=== PATIENT | female | born 1955 | race Caucasian/White ===

== ENCOUNTER → 2020-03-11 | Outpatient (CLI) | payer OTHER ==
--- NOTE | 2020-03-11 08:40 | US ---
EXAMINATION TYPE: US abdomen complete DATE OF EXAM: 03/11/2020 COMPARISON: NONE CLINICAL HISTORY: R10.84 ABD PAIN. Pain EXAM MEASUREMENTS: Liver Length: 16.4 cm Gallbladder Wall: Surgically absent cm CBD: .5 cm Spleen: 10.3 cm Right Kidney: 10.4 x 3.8 x 4.9 cm Left Kidney: 10.9 x 4.3 x 3.7 cm Pancreas: wnl as visualized with partial obscuration of the pancreatic head and tail due to overlyin g bowel gas Liver: wnl Gallbladder: Surgically absent Evidence for sonographic Farnsworth's sign: No CBD: wnl Spleen: wnl Right Kidney: wnl Left Kidney: wnl Upper IVC: wnl Abd Aorta: wnl The liver is homogenous. The intrahepatic portion of the IVC and proximal abdominal aorta are within normal limits Common bile duct is unremarkable. The visualized portions of the pancreas are homogen ous. The spleen is unremarkable. Kidneys are symmetric and free of hydronephrosis. No renal lesion s are seen. IMPRESSION: Unremarkable abdominal ultrasound other than surgical absence of the gallbladder.
== END | disposition home or self-care (01) ==
LOC: RADUSWWP 07:41
PROVIDERS: ATTEND Family Medicine
DX: Z90.49 Acquired absence of other specified parts of digestive tract (principal)
CPT/HCPCS: 76700

== ENCOUNTER → 2020-11-25 | Outpatient (CLI) | payer OTHER ==
[2020-11-25 15:49] VITALS: BP 118/77; PULSE 78; RESP 18; TEMP 97.7
--- NOTE | 2020-11-25 17:08 | P.GSHP ---
History of Present Illness H&P Date: 11/25/20 Chief Complaint: DCIS left breast Joy is a 65 year old white female seen in consultation for DR. Carrillo who had a routine screening mammogram on 10-01-20 and was noted to have an area of microcalcificaton in the left breast. Diagnostic mammogram was then performed and 120 [id number]. This revealed a suspicious group of calcifications in the upper outer quadrant region. She has not felt anything Her breast. She is not complaining of any nipple discharge or skin changes. A stereotactic core biopsy was performed on 2420. This revealed DCIS high-grade with comedonecrosis. Microinvasion could not be excluded. The radiographs were reviewed with Dr. Akhtar it is felt that the area of concern is approximately 1 cm in size. She does not have any history of recent trauma or infection in her breast. She has had fibrocystic changes and felt some nodularity in that region in the past but that is not changed recently. The patient was tested for the BRACA gene and was negative. Caffeine: 1-2 cups of coffee/day nicotine: none juanita-bromine: occasional hormones: none Family History: mother: breast cancer (three times, recurred) at 33 maternal grandmother: breast cancer, of this ? age sister: breast cancer, mets to brain form this niece: breast cancer maternal uncle: stomach cancer, of this Hormonal History: menarche: 17 , breast fed: no, age at first : 20 menopause: endometriosis, had stopped periods with hormones BCP: less than 2 years Medical History: back pain asthma GERD hypothyroid Surgical HIstory: tubal gallbladder appy Social History: nicotine: stopped 20 years ago alcohol: occasional drugs: back pain, Marijuana occasionally - Constitutional Constitutional: Reports chills, Denies fever - EENT Eyes: bilateral blurred vision, denies pain Ears: deny: decreased hearing, tinnitus Ears, nose, mouth and throat: Denies headache, Denies sore throat - Breasts Breasts: bilateral: as per HPI - Cardiovascular Cardiovascular: Denies chest pain, Denies shortness of breath - Respiratory Respiratory: Denies cough, Denies 7 - Gastrointestinal Gastrointestinal: Denies abdominal pain, Denies diarrhea, Denies nausea, Denies vomiting - Genitourinary (Female) Genitourinary: Denies dysuria, Denies hematuria - Menstruation Menstruation: Reports postmenopausal - Musculoskeletal Comment: back pain - Integumentary Integumentary: Denies pruritus, Denies rash - Neurological Neurological: Denies numbness, Denies weakness - Psychiatric Psychiatric: Denies anxiety, Denies depression - Endocrine Endocrine: Denies fatigue, Denies weight change - Hematologic/Lymphatic Comment: none - Allergic/Immunologic Allergic/Immunologic: Reports as per HPI, Reports seasonal allergies Past Medical History Past Medical History: Asthma, Eye Disorder, Fibromyalgia, GERD/Reflux, Musculoskeletal Disorder, Osteoarthritis (OA), Rheumatoid Arthritis (RA), Thyroid Disorder Additional Past Medical History / Comment(s): MUSCLE IMBALANCE LT EYE. Hiatal Hernia. Endometriosis; LMP 2014. Anemia. Lower back pain, has pain in LUQ ABD/Side that radiates to back. Environmental allergies- never testED. History of Any Multi-Drug Resistant Organisms: None Reported Past Surgical History: Appendectomy, Cholecystectomy, Tubal Ligation Additional Past Surgical History / Comment(s): CHOLECYSTECTOMY, 08/22/15. EGD 08/19/15, 10/24/15. Past Anesthesia/Blood Transfusion Reactions: No Reported Reaction, Family History of Problems w/ Anesthesia Additional Past Anesthesia/Blood Transfusion Reaction / Comment(s): Mom has ponv & sob with anesthesia Past Psychological History: Anxiety Smoking Status: Former smoker Past Alcohol Use History: None Reported Additional Past Alcohol Use History / Comment(s): started smoking @ age 18 (1973)-quit 2006- was 5 cigarettes a day Past Drug Use History: Marijuana Additional Drug Use History / Comment(s): medical marijuana - states uses when pain from fibromyalgia gets too bad. - Past Family History Mother Family Medical History: Cancer Sister(s) Family Medical History: Cancer Father Family Medical History: No Reported History Medications and Allergies Home Medications Medication Instructions Recorded Confirmed Type Levothyroxine Sodium [Synthroid] 112 mcg PO QAM 08/15/15 11/25/20 History Albuterol Inhaler (Mhu) [Ventolin 1 - 2 puff INHALATION RT-Q6H PRN 08/21/15 11/25/20 History Inhaler] Cholecalciferol [Vitamin D3] 1,000 unit PO DAILY 08/21/15 11/25/20 History Sertraline [Zoloft] 25 mg PO DAILY 10/21/15 11/25/20 History Allergies Allergy/AdvReac Type Severity Reaction Status Date / Time No Known Allergies Allergy Verified 11/25/20 15:49 Surgical - Exam Vital Signs Temp Pulse Resp BP 97.7 F 78 18 118/77 11/25/20 15:39 11/25/20 15:39 11/25/20 15:39 11/25/20 15:39 BMI 23.8 - General well developed, well nourished, no distress - Eyes normal ocular movement - ENT no hearing loss - Neck no masses, trachea midline - Respiratory normal expansion, normal respiratory effort, clear to auscultation - Cardiovascular Rhythm: regular Heart Sounds: normal: S1, S2 - Abdomen Abdomen: soft, bowel sounds - Integumentary normal turgor - Neurologic no disoriented, no combative - Musculoskeletal normal gait, normal posture - Psychiatric oriented to time, oriented to person, oriented to place, speech is normal, memory intact Breast Cancer: BRA: 38C inspection: Bilateral grade 2 ptosis Palpation: Right breast: Multiple positional exam fibrocystic changes no dominant masses or nodules of concern Right axilla: No adenopathy of concern Left breast: Multiple positional exam increased fullness upper-outer quadrant area which is consistent with the same region seen on mammogram for which biopsy was done, well-healed scar over stereotactic core biopsy was done no evidence of any infection Left axilla: No adenopathy of concern Results Mammogram reviewed with Dr. Akhtar from radiology Assessment and Plan Assessment: Impression: 1. DCIS left breast 2. Mild fullness left breast upper outer quadrant 2. Abnormal left breast mammogram 4. Family history of breast cancer 5. Back pain 6. Hypothyroidism Plan: 1. genetic testing 2. appointment with plastic surgery 3. present at tumor board CC: / Shellie encounter 45 minutes, time spent in physical exam, reviewing medical records, counselling.
== END | disposition home or self-care (01) ==
LOC: WWCWWP 15:19
PROVIDERS: ATTEND Surgery
DX: D05.12 Intraductal carcinoma in situ of left breast (principal); R92.8 Other abnormal and inconclusive findings on diagnostic imaging of breast; Z80.3 Family history of malignant neoplasm of breast; M54.9 Dorsalgia, unspecified; E03.9 Hypothyroidism, unspecified; F41.9 Anxiety disorder, unspecified; J45.909 Unspecified asthma, uncomplicated; K21.9 Gastro-esophageal reflux disease without esophagitis; M06.9 Rheumatoid arthritis, unspecified; M79.7 Fibromyalgia; Z87.891 Personal history of nicotine dependence

== ENCOUNTER → 2021-01-02 | Outpatient (CLI) | payer OTHER ==
[2021-01-02 10:38] VITALS: BP 109/76; PULSE 67; RESP 18; TEMP 98.1
--- NOTE | 2021-01-02 11:45 | P.PN ---
Subjective Progress Note Date: 01/02/21 Principal diagnosis: left breast DCIS/ possible microinvasion Joy is a 65 year old white female seen in consultation for DR. Carrillo who had a routine screening mammogram on 10-01-20 and was noted to have an area of microcalcificaton in the left breast. Diagnostic mammogram was then performed and [id number]. This revealed a suspicious group of calcifications in the upper outer quadrant region. She has not felt anything Her breast. She is not complaining of any nipple discharge or skin changes. A stereotactic core biopsy was performed on 2420. This revealed DCIS high-grade with comedonecrosis. Microinvasion could not be excluded. The radiographs were reviewed with Dr. Akhtar it is felt that the area of concern is approximately 1 cm in size. She does not have any history of recent trauma or infection in her breast. She has had fibrocystic changes and felt some nodularity in that region in the past but that is not changed recently. The patient was tested for the BRACA gene and was negative. Caffeine: 1-2 cups of coffee/day nicotine: none juanita-bromine: occasional hormones: none Family History: mother: breast cancer (three times, recurred) at 33 maternal grandmother: breast cancer, of this ? age sister: breast cancer, mets to brain form this niece: breast cancer maternal uncle: stomach cancer, of this Hormonal History: menarche: 17 , breast fed: no, age at first : 20 menopause: endometriosis, had stopped periods with hormones BCP: less than 2 years Medical History: back pain asthma GERD hypothyroid Surgical HIstory: tubal gallbladder appy Social History: nicotine: stopped 20 years ago alcohol: occasional drugs: back pain, Marijuana occasionally - Constitutional Constitutional: Reports chills, Denies fever - EENT Eyes: bilateral blurred vision, denies pain Ears: deny: decreased hearing, tinnitus Ears, nose, mouth and throat: Denies headache, Denies sore throat - Breasts Breasts: bilateral: as per HPI - Cardiovascular Cardiovascular: Denies chest pain, Denies shortness of breath - Respiratory Respiratory: Denies cough - Gastrointestinal Gastrointestinal: Denies abdominal pain, Denies diarrhea, Denies nausea, Denies vomiting - Genitourinary (Female) Genitourinary: Denies dysuria, Denies hematuria - Menstruation Menstruation: Reports postmenopausal - Musculoskeletal Comment: back pain - Integumentary Integumentary: Denies pruritus, Denies rash - Neurological Neurological: Denies numbness, Denies weakness - Psychiatric Psychiatric: Denies anxiety, Denies depression - Endocrine Endocrine: Denies fatigue, Denies weight change - Hematologic/Lymphatic Comment: none - Allergic/Immunologic Allergic/Immunologic: Reports as per HPI, Reports seasonal allergies Objective - Vital Signs Vital signs: Vital Signs Temp 98.1 F 01/02/21 10:35 Pulse 67 01/02/21 10:35 Resp 18 01/02/21 10:35 BP 109/76 01/02/21 10:35 Pulse Ox 97 01/02/21 10:35 Intake & Output 01/01/21 01/02/21 01/02/21 18:59 06:59 18:59 Weight 65.771 kg - Exam BMI 24.9 - Constitutional General appearance: Present: average body habitus - EENT Eyes: Present: EOMI ENT: Present: hearing grossly normal - Neck Neck: Present: normal ROM - Respiratory Respiratory: bilateral: CTA - Cardiovascular Rhythm: regular Heart sounds: normal: S1, S2 - Integumentary Integumentary: Present: normal turgor - Musculoskeletal Musculoskeletal: Present: gait normal - Psychiatric Psychiatric: Present: A&O x's 3, appropriate affect, intact judgment & insight - Additional findings Additional findings: breast exam: BRA: 38C inspection: bilateral grade 2 ptosis palpation: Breasts: Multiple positional exam fibrocystic changes, no dominant masses or nodules of concern Right axilla: No adenopathy of concern Left breast: Multiple positional exam fibrocystic changes, no dominant masses or nodules of concern Left axilla: No adenopathy of concern Assessment and Plan Assessment: Impression: 1. Stage I a left breast cancer/possible stage 0 breast cancer uncertain as to microinvasion 2. Fibrocystic breast changes 3. Strong family history of breast cancer 4. Genetic testing pending Plan: 1. Case presented at tumor board 2. Patient initially was considering bilateral mastectomy with reconstruction at this time she wishes lumpectomy to be performed. She understands risks and benefits of the procedure including bleeding, infection, reaction to the anesthetic and wishes to proceed. 3. We have discussed the fact that after lumpectomy radiation would be recommended she is uncertain as to whether she will except radiation and will consider this after final pathology is known 4. Needle localization lumpectomy left breast, possible mastopexy, possible onco- plastic tissue transfer, sentinel node injection, sentinel node biopsy, possible axillary node dissection Treatment options ranging from bilateral mastectomy plus or minus reconstruction to lumpectomy the mastopexy incision or other incision were discussed with the patient. At this time she wishes needle localization lumpectomy via mastopexy incision, she understands that her breasts will be asymmetric this can be addressed after complete treatment of the left breast. She wishes to proceed. Markings were placed on the patient's breasts to show where a mastopexy incision would be placed. She understands this and wishes to proceed. Cc: Dr. Worthington encounter 45 minutes
== END ==
LOC: WWCWWP 09:49
PROVIDERS: ATTEND Surgery
DX: C50.912 Malignant neoplasm of unspecified site of left female breast (principal); N60.12 Diffuse cystic mastopathy of left breast; N60.11 Diffuse cystic mastopathy of right breast; E03.9 Hypothyroidism, unspecified; J45.909 Unspecified asthma, uncomplicated; Z79.890 Hormone replacement therapy; Z87.891 Personal history of nicotine dependence; Z80.3 Family history of malignant neoplasm of breast

== ENCOUNTER 2021-01-06 09:54 | Day surgery (SDC) | payer OTHER ==
[2021-01-05 09:33] VITALS: BMI 23.8
[~2021-01-06 09:54] MED LIST: ALPRAZolam 0.5 MG TAB PO PRN; DEXAMETHASONE SOD PHOSPHATE 4 MG/ML 1 ML VIAL IV ONE; HEPARIN SODIUM,PORCINE 5,000 UNIT/ML 1 ML VIAL SQ PRN; LIDOCAINE 1% (10MG/ML) FOR IV START INTRADERMA PRN; MIDAZOLAM 2 MG/2 ML VIAL IV PRN; Pre Op ABX Message 1 EACH MISC MISCELLANE ONE
[2021-01-06] MEDS: LACTATED RINGERS 1,000 ML IV SCH ×2 (10:36→15:53)
--- NOTE | 2021-01-06 11:21 | P.NAPBC ---
NAPBC Queries - [facility] Was patient's case review presented at [facility] tumor board? If no, comment.: Yes Was patient's pathology reviewed at [facility]? If no, comment.: Yes Was breast conservation surgery offered? If no, comment.: Yes Was sentinel node biopsy offered? If no, comment.: Yes Was diagnosis confirmed by percutaneous core biopsy? If no, comment.: Yes Is patient mastectomy patient?: No Was a preop referral to reconstructive surgeon offered?: Yes (initially patient wanted a mastectomy) Clinical Stage: stage IA
[2021-01-06] MEDS ORDERED: LIDOCAINE 1% INJ 10MG/ML (20 ML MDV) SQ ONE (11:31)
[2021-01-06] MEDS: ONDANSETRON 4 MG/2 ML VIAL ONE ×2 (12:12→15:01)
[2021-01-06] MEDS ORDERED: ePHEDrine SULFATE/0.9% NACL/PF 50 MG/5 ML SYRINGE IV ONE (12:28)
[2021-01-06] MEDS ORDERED: MIDAZOLAM 2 MG/2 ML VIAL ONE (12:28)
[2021-01-06] MEDS ORDERED: WATER FOR INJECTION, STERILE 10 ML VIAL IV ONE (12:28)
[2021-01-06] MEDS ORDERED: fentaNYL (PF) 50 MCG/ML 2 ML AMP ONE (12:28)
[2021-01-06] MEDS ORDERED: SUCCINYLCHOLINE CHLORIDE 100 MG/5 ML SYR IV ONE (12:28)
[2021-01-06] MEDS ORDERED: PROPOFOL 10 MG/ML 20 ML VIAL IV ONE (12:28)
[2021-01-06] MEDS ORDERED: LIDOCAINE 1% INJ 10MG/ML (20 ML MDV) ONE (12:28)
--- NOTE | 2021-01-06 12:45 | NM ---
EXAMINATION TYPE: NM sentinel node injection DATE OF EXAM: 01/06/2021 COMPARISON: NONE HISTORY: 65 year-old female with biopsy-proven left breast DCIS. TECHNIQUE AND FINDINGS: The procedure of sentinel lymph node injection was explained to the patient. The benefits, alternatives, and risks were discussed. An informed consent was then obtained. Overlying skin is cleaned with sterile alcohol. Following this, 505 uCi Tc99m Tilmanocept was inject ed in the upper outer aspect of the left nipple intradermally. The patient tolerated the procedure well without any immediate complication. The patient was kept in the radiology department for short stay after the procedure and then taken to surgery for surgical p rocedure what is presumed intraoperative gamma probe will be used for sentinel lymph node detection. IMPRESSION: Successful left breast radiotracer injection for sentinel node localization as above.
--- NOTE | 2021-01-06 14:29 | P.OP ---
Date of Procedure: 01/06/21 Preoperative Diagnosis: Left breast DCIS/possible microinvasion Postoperative Diagnosis: Same Procedure(s) Performed: Localization excisional lumpectomy with margins, onco-plastic tissue transfer 60.5 cm, sentinel node resection Anesthesia: NATTY Surgeon: Tabitha Mckenna Estimated Blood Loss (ml): 3 IV fluids (ml): 300 Pathology: other (lymph node and breast tissue) Condition: stable Disposition: same day Indications for Procedure: left breast DCIS, possible microinvasion Operative Findings: dense breast tissue Description of Procedure: Joy is a 64-year-old white female who presented with a core biopsy which was positive for ductal carcinoma in situ, possible microinvasion, in the left breast upper outer quadrant. She opted for lumpectomy with sentinel node biopsy. Preoperatively we discussed possible mastopexy incision, however after needle localization in the preoperative after review of the needle localization she opted for a resection without mastopexy. She was brought to the operating room and following induction of anesthesia the left breast was prepped and draped in a sterile fashion as well as the axilla. The axilla had been interrogated preprocedure to assure that radioactive substance had traveled to the axilla and this had occurred. The axilla was approached first. Using the [place] counter the area of highest radioactivity was identified and incision was made and carried down into the deeper axillary tissues. A deep axillary node was identified which was radioactive. This was removed using careful blunt and sharp dissection. The Harmonic Scalpel was used to help obtain hemostasis. The lymph node was removed and the 10 second radioactive count was 2859. The background count of the axilla was 35 at 10 seconds. The area was well irrigated. The deep tissues were closed using 3-0 Vicryl suture. The skin was closed using a 4-0 Monocryl. Steri-Strips were applied. The area of the breast was then approached. A incision was made and carried down to the hook and shaft of the needle. Surrounding tissue was excised. The specimen was 5 cm x 4.5 cm. This was removed and painted for orientation. Radiograph of the specimen was obtained and revealed that the area of concern as well as microcalcifications had been removed. After we were assured that hemostasis was attained superior and inferior pillars were developed. The superior pillar was 4 x 4 centimeters. It was freed along the subcutaneous tissue as well as onto the chest wall. The inferior pillar was 5.5 x 4 cm and was freed again in the subcutaneous plane as well as on the plan above the pectoralis muscle. Titanium clips were placed. The posterior dissection had been carried to the pectoralis muscle. The deep tissues were closed using 3-0 Vicryl sutures. The pilars wre brought together to close the defect. The total tissue transfer was 60.5 cm. Following this the subcutaneous tissue was closed using 3-0 Vicryl suture. This was followed by closure of the subcuticular tissue with a 4-0 Monocryl followed by a nylon skin suture. The patient tolerated the procedure in stable condition. All instrument and sponge counts were correct at the end of the case.
--- NOTE | 2021-01-06 14:32 | P.DS ---
Providers Attending physician: Tabitha Mckenna Primary care physician: Kristian Worthington Plan - Discharge Summary Discharge Rx Participant: Yes New Discharge Prescriptions: No Action Cholecalciferol [Vitamin D3] 1,000 unit PO DAILY Albuterol Inhaler (Mhu) [Ventolin Inhaler] 1 - 2 puff INHALATION RT-Q6H PRN PRN Reason: Shortness Of Breath Ferrous Sulfate [Feosol] 325 mg PO 1800 Zinc Tab 30 mg PO PC-SUPPER [place]-3 Fatty Acids/Fish Oil [Fish Oil 1,000 mg Softgel] 1 each PO DAILY Allergy Sinus And Headache 2 cap PO DAILY Levothyroxine Sodium [Synthroid] 100 mcg PO DAILY Cetirizine HCl [Zyrtec] 10 mg PO DAILY Discharge Medication List Albuterol Inhaler (Mhu) [Ventolin Inhaler] 1 - 2 puff INHALATION RT-Q6H PRN 08/21/15 [History] Cholecalciferol [Vitamin D3] 1,000 unit PO DAILY 08/21/15 [History] Allergy Sinus And Headache 2 cap PO DAILY 01/05/21 [History] Cetirizine HCl [Zyrtec] 10 mg PO DAILY 01/05/21 [History] Ferrous Sulfate [Feosol] 325 mg PO 1800 01/05/21 [History] Levothyroxine Sodium [Synthroid] 100 mcg PO DAILY 01/05/21 [History] [place]-3 Fatty Acids/Fish Oil [Fish Oil 1,000 mg Softgel] 1 each PO DAILY 01/05/21 [History] Zinc Tab 30 mg PO PC-SUPPER 01/05/21 [History] Follow up Appointment(s)/Referral(s): Tabitha Mckenna MD [STAFF PHYSICIAN] - 2 Weeks Activity/Diet/Wound Care/Special Instructions: do not drive today do not drive if taking narcotic pain medicine wear bra at all times may shower after 48 hours Discharge Disposition: HOME SELF-CARE
[2021-01-06 14:38] VITALS: TEMP 97
[2021-01-06] MEDS: HYDROmorphone 0.5 MG/0.5 ML SYRINGE IVP PRN ×3 (14:41→15:18)
[2021-01-06 14:49] VITALS: RESP 16
--- NOTE | 2021-01-06 15:15 | MM ---
EXAMINATION TYPE: MG pre op needle loc LT, MG surgical specimen LT DATE OF EXAM: 01/06/2021 COMPARISON: 11/13/2020, 11/06/2020 CLINICAL HISTORY: 65 year-old female with biopsy-proven DCIS left breast referred for needle localization for excision. TECHNIQUE: Needle localization with wire placement and surgical excision of area of concern in the upper outer quadrant left breast. FINDINGS: The procedure of needle localization with wire placement and than surgical excision was explained to the patient. Benefits, alternatives, and risks were discussed. An informed consent was then obtained. The shortest pathway for procedure was chosen. Shortest pathway was a lateral approach. The overlying skin was prepped and draped in usual sterile fashion. Lidocaine was used as anesthetic into the skin and subcutaneous tissue up to the level of area of concern. A 7 cm needle was used. It was placed via a lateral approach under mammographic guidance. Subsequent 90 degrees mammogram show the needle to be in satisfactory position relative to the targeted area. At this point, wire was placed and the needle was withdrawn. The wire was fixed to patient's skin. Images were marked for surgeon. The patient tolerated the procedure well without any immediate complication. The patient was kept in the radiology department for short stay after the procedure and then taken to surgery for surgical excision. Targeted clip, some residual microcalcifications, and wire are identified in the specimen mammogram. The patient was kept in hospital for short stay after the procedure and then discharged home in stable condition. IMPRESSION: Successful, uncomplicated needle localization with wire placement and surgical excision of biopsy-proven site of DCIS in the upper outer quadrant left breast, full pathology results to follow. Pathology Results: Malignant A. SENTINEL LYMPH NODE, LEFT BREAST, EXCISION: One sentinel lymph node negative for metastatic carcinoma. CK7 and CAYETANO stains with appropriate controls on blocks A1 and A2 are negative for metastatic adenocarcinoma. B. LEFT BREAST, LUMPECTOMY: High grade ductal carcinoma in situ (DCIS) with comedonecrosis (see Surgical Pathology Cancer Case Summary and comment). Negative for diagnostic invasive carcinoma. Margins uninvolved by DCIS; DCIS close to and measures less than 1 mm from anterior/superior and posterior margins. Recommendation Surgical consult of the left breast. [facility]
[2021-01-06] MEDS ORDERED: HYDROcodone/APAP 5-325MG 1 EACH TAB ONE (16:17)
[2021-01-06] MEDS ORDERED: HYDROcodone/APAP 5-325MG 1 EACH TAB PO ONE (16:19)
[2021-01-06] MEDS ORDERED: ACETAMINOPHEN IV (For NPO) 1,000 MG in EMPTY BAG 1 BAG IVPB STA (16:54)
[2021-01-06] MEDS ORDERED: ACETAMINOPHEN IV (For NPO) 1,000 MG/100 ML VIAL IVPB ONE (17:00)
[2021-01-06 17:23] VITALS: BP 135/79; PULSE 92
== END 2021-01-06 17:35 | disposition home or self-care (01) ==
LOC: OR 09:54
PROVIDERS: ATTEND Surgery
DX: D05.12 Intraductal carcinoma in situ of left breast (principal); N60.22 Fibroadenosis of left breast; N60.12 Diffuse cystic mastopathy of left breast; N60.82 Other benign mammary dysplasias of left breast; N80.9 Endometriosis, unspecified; J45.909 Unspecified asthma, uncomplicated; K21.9 Gastro-esophageal reflux disease without esophagitis; E03.9 Hypothyroidism, unspecified; N64.81 Ptosis of breast; N60.11 Diffuse cystic mastopathy of right breast; Z17.1 Estrogen receptor negative status [ER-]; Z78.0 Asymptomatic menopausal state; Z98.51 Tubal ligation status; Z90.49 Acquired absence of other specified parts of digestive tract; Z87.891 Personal history of nicotine dependence; Z97.2 Presence of dental prosthetic device (complete) (partial); Z79.899 Other long term (current) drug therapy; Z79.890 Hormone replacement therapy; Z80.3 Family history of malignant neoplasm of breast; Z80.8 Family history of malignant neoplasm of other organs or systems; Z80.0 Family history of malignant neoplasm of digestive organs
CPT/HCPCS: 19301; 38525; 14301; 14302; 88342; 88307; 88341; 76098; 38792; A9520; J2250; J1644; J1100; J2405; J2001; J3010; J0131; J0330; J2704; J1170

== ENCOUNTER → 2021-01-22 | Outpatient (CLI) | payer OTHER ==
[2021-01-22 10:25] VITALS: BP 111/76; PULSE 64; RESP 18; TEMP 98.1
--- NOTE | 2021-01-22 11:16 | P.PN ---
Progress Note - Text Progress Note Date: 01/22/21 Joy is a 65-year-old white female status post left breast lumpectomy and sentinel node biopsy on . Lumpectomy revealed high-grade ductal carcinoma in situ with comedonecrosis. Margins were uninvolved but she had margins close on the anterior and superior and posterior margins less than 1 mm from the margin. The posterior dissection was carried onto the pectoralis muscle. The anterior dissection is to believed to be into the subcutaneous tissue. The patient had 1 sentinel node removed which was negative for metastatic adenocarcinoma. Postoperatively she has done well without complaints. Physical examination: Incision axilla and breast clean and dry Lungs: Clear Heart: Regular rate and rhythm Impression/Plan: 1. Patient status post lumpectomy pathology DCIS with comedonecrosis close to the anterior/superior/posterior margins 2. [place] lymph node negative 3. Tumor is ER/MA negative 4. Patient to follow-up with radiation oncology 5. Repeat present case at tumor board 6. Patient to follow up after Repoza patient of case at tumor board CC: Dr Worhtington
== END ==
LOC: WWCWWP 10:14
PROVIDERS: ATTEND Surgery
DX: C50.912 Malignant neoplasm of unspecified site of left female breast (principal); Z17.1 Estrogen receptor negative status [ER-]

== ENCOUNTER → 2021-02-05 | Outpatient (CLI) | payer OTHER ==
--- NOTE | 2021-02-05 11:36 | MM ---
Reason for exam: follow-up at short interval from prior study. History: Patient is postmenopausal and has history of breast cancer at age 65. Family history of breast cancer in maternal grandmother at age 49, breast cancer in mother at age 34, and breast cancer in sister at age 42. Malignant MG pre op needle loc LT of the left breast, January 06, 2021. Lumpectomy of the left breast, January 06, 2021. Physical Findings: Nurse Summary: 2cm nodule in the left breast at scar (nurse dw). MG Diagnostic Mammo LT w CAD CC and MLO view(s) were taken of the left breast. Prior study comparison: November 06, 2020, left breast mammogram, performed at [facility]. October 01, 2020, bilateral mammogram, performed at [facility]. The breast tissue is heterogeneously dense. This may lower the sensitivity of mammography. Finding: There are typically benign round calcifications in the upper outer quadrant of the left breast. Post surgical changes. These results were verbally communicated with the patient and result sheet given to the patient on 02/05/21. ASSESSMENT: Benign, BI-RAD 2 RECOMMENDATION: Follow-up diagnostic mammogram of both breasts in 8 months. Back on schedule for September 2021.
== END | disposition home or self-care (01) ==
LOC: RADMAMWWP 08:13
PROVIDERS: ATTEND Surgery
DX: D05.12 Intraductal carcinoma in situ of left breast (principal); R92.1 Mammographic calcification found on diagnostic imaging of breast; Z85.3 Personal history of malignant neoplasm of breast; Z80.3 Family history of malignant neoplasm of breast; Z78.0 Asymptomatic menopausal state
CPT/HCPCS: 77065

== ENCOUNTER → 2021-02-13 | Outpatient (CLI) | payer OTHER ==
[2021-02-13 12:41] VITALS: BP 112/78; PULSE 82; RESP 14; TEMP 98.3
--- NOTE | 2021-02-13 13:39 | P.PN ---
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 The pathology revealed 40 mm high-grade DCIS less than 1 mm from the anterior superior and posterior margins. Posteriorly dissection was to the pectoralis major muscle. The patient's case was presented at tumor board and it was recommended that she have a repeat mammogram to ascertain if there was residual calcifications. The repeat mammogram was performed on 420 921. This was read as benign BIRADS 2. The mammogram in detail with Dr. Akhtar as well as the lumpectomy specimen suggested that there may be one residual calcification on the border of resection. The patient additionally has benign-appearing round calcifications in the upper outer quadrant of the breast. The patient is ER/ND negative. The patient has a positive family history of breast cancer including her mother who had breast cancer that recurred 3 times Paternal grandmother breast cancer Sister breast cancer, metastases to the brain These breast cancer The patient had genetic testing performed which has 2 units of uncertain significance. At this time the patient complains of some mild irritation of the axillary incision Physical examination breasts incision clean and dry well-healed Axillary incision small stitch abscess in the lateral aspect and the stitch was removed I have had a long discussion with the patient and her fianc regarding her pathology and the possible treatment options. The patient would prefer to have no further treatment and close surveillance. I discussed that this would be a poor choice and I do not recommend this. At minimum radiation therapy versus re- excision and radiation therapy should be undertaken versus mastectomy plus or minus reconstruction . She has met with the plastic surgeon. She understands that we could perform a mastectomy and not find residual tumor. She also understands that if she had radiation was noted to have increasing calcifications at a future time that she would need to have further intervention via biopsy and possible surgery. At this time the patient is going to meet with the radiation oncologist and she will make a decision after meeting with radiation oncology. The case was presented at tumor board and the recommendation was for a repeat mammogram which was as reported blood with Dr. Akhtar. Plan: 1. Patient is meeting with radiation oncology she is going to let us know patient would like to do Encountered 60 minutes Cc: Dr.Frocillo Objective - Vital Signs Vital signs: Vital Signs Temp 98.3 F 02/13/21 12:36 Pulse 82 02/13/21 12:36 Resp 14 02/13/21 12:36 BP 112/78 02/13/21 12:36 Pulse Ox 99 02/13/21 12:36 Intake & Output 02/12/21 02/13/21 02/13/21 18:59 06:59 18:59 Weight 65.317 kg
== END ==
LOC: WWCWWP 12:20
PROVIDERS: ATTEND Surgery
DX: D05.12 Intraductal carcinoma in situ of left breast (principal); Z17.1 Estrogen receptor negative status [ER-]; Z80.3 Family history of malignant neoplasm of breast; Z87.891 Personal history of nicotine dependence; Z98.890 Other specified postprocedural states

== ENCOUNTER → 2021-02-19 | Outpatient (CLI) | payer OTHER ==
[2021-02-19 12:48] VITALS: BP 122/78; PULSE 69; RESP 16; TEMP 97.8
--- NOTE | 2021-02-19 13:01 | P.PN ---
Progress Note - Text Progress Note Date: 02/19/21 DCIS left breast/ close margins 4 cm in size/ Joy is a 65-year-old white female status post left breast lumpectomy and sentinel node biopsy on 01/06/21. The pathology revealed 40 mm high-grade DCIS less than 1 mm from the anterior superior and posterior margins. Posteriorly dissection was to the pectoralis major muscle. The patient's case was presented at tumor board and it was recommended that she have a repeat mammogram to ascertain if there was residual calcifications. The repeat mammogram was performed on 420 921. This was read as benign BIRADS 2. The mammogram in detail with Dr. Akhtar as well as the lumpectomy specimen suggested that there may be one residual calcification on the border of resection. The patient additionally has benign-appearing round calcifications in the upper outer quadrant of the breast. The patient is ER/TX negative. The patient has a positive family history of breast cancer including her mother who had breast cancer that recurred 3 times Paternal grandmother breast cancer Sister breast cancer, metastases to the brain These breast cancer The patient had genetic testing performed which has 2 units of uncertain significance. At this time the patient complains of some mild irritation of the axillary incision I have had a long discussion with the patient and her fianc regarding her pathology and the possible treatment options. The patient would prefer to have no further treatment and close surveillance. I discussed that this would be a poor choice and I do not recommend this. At minimum radiation therapy versus re- excision and radiation therapy should be undertaken versus mastectomy plus or minus reconstruction . She has met with the plastic surgeon. She understands that we could perform a mastectomy and not find residual tumor. She also understands that if she had radiation was noted to have increasing calcifications at a future time that she would need to have further intervention via biopsy and possible surgery. At this time the patient is going to meet with the radiation oncologist and she will make a decision after meeting with radiation oncology. The case was presented at tumor board and the recommendation was for a repeat mammogram which was as reported blood with Dr. Akhtar. I discussed the patient's case in detail with Dr. Ramirez from radiation oncology. He is willing to treat her with radiation without further reexcision. I discussed with the patient that ideally we would like to have a 2 mm margin. At this time she is not agreed any further surgical intervention. Plan: At this time patient is going to plan for radiation therapy and follow-up here in 4 months. Patient is anything of concern sooner she will follow up sooner. CC: DR. Worthington
== END ==
LOC: WWCWWP 12:32
PROVIDERS: ATTEND Surgery
DX: D05.12 Intraductal carcinoma in situ of left breast (principal); Z87.891 Personal history of nicotine dependence

== ENCOUNTER 2021-06-15 07:03 | Emergency (ER) | payer OTHER ==
[2021-06-15 07:16] VITALS: TEMP 98
[2021-06-15] MEDS ORDERED: ALBUTEROL HFA INHALER INHALATION STA (07:35)
[2021-06-15] MEDS ORDERED: SODIUM CHLORIDE 0.9% 1,000 ML IV STA ×2 (07:37)
[2021-06-15] MEDS ORDERED: ONDANSETRON 4 MG/2 ML VIAL IVP STA (07:37)
--- NOTE | 2021-06-15 07:40 | ED ---
SOB HPI - General Chief Complaint: Shortness of Breath Stated Complaint: COVID+,SOB Time Seen by Provider: 06/15/21 07:20 Source: patient Mode of arrival: ambulatory Limitations: no limitations - History of Present Illness Initial Comments: This is a 65-year-old female was a smoker who states she started not feeling well on June 07 and she was diagnosed with Covid 19 3 days ago. She's been having fevers chills sweats nausea vomiting diarrhea generalized body aches decreased oral intake. She states that 3 days ago she did have a syncopal episode at home she got up to go the bathroom and woke up on the floor. She states this has happened one other time previously but quite a while ago. She states she did have some palpitations at that time. No other current complaints modifying factors MD Complaint: shortness of breath, cough - Related Data Home Medications Medication Instructions Recorded Confirmed Albuterol Inhaler (Mhu) [Ventolin 1 - 2 puff INHALATION RT-Q6H PRN 08/21/15 02/19/21 Inhaler] Cholecalciferol [Vitamin D3] 1,000 unit PO QAM 08/21/15 02/19/21 Allergy Sinus And Headache 2 cap PO DAILY 01/05/21 02/19/21 Cetirizine HCl [Zyrtec] 10 mg PO QAM 01/05/21 02/19/21 Ferrous Sulfate [Feosol] 325 mg PO 1800 01/05/21 02/19/21 Levothyroxine Sodium [Synthroid] 100 mcg PO QAM 01/05/21 02/19/21 [place]-3 Fatty Acids/Fish Oil [Fish 1 each PO QAM 01/05/21 02/19/21 Oil 1,000 mg Softgel] Zinc Tab 30 mg PO PC-SUPPER 01/05/21 02/19/21 Ascorbic Acid [Vitamin C] 500 mg PO QAM 01/22/21 02/19/21 Previous Rx's Medication Instructions Recorded Benzonatate [Tessalon Perles] 100 mg PO TID #21 cap 06/15/21 predniSONE [Deltasone] 20 mg PO BID #10 tab 06/15/21 Allergies Allergy/AdvReac Type Severity Reaction Status Date / Time No Known Allergies Allergy Verified 02/19/21 12:44 Review of Systems ROS Statement: Those systems with pertinent positive or pertinent negative responses have been documented in the HPI. ROS Other: All systems not noted in ROS Statement are negative. Past Medical History Past Medical History: Asthma, Eye Disorder, Fibromyalgia, GERD/Reflux, Osteo arthritis (OA), Rheumatoid Arthritis (RA), Thyroid Disorder Additional Past Medical History / Comment(s): MUSCLE IMBALANCE LT EYE. Hiatal Hernia. hx Endometriosis, Anemia. Lower back pain, "precancer left breast", "back muscles lock up" History of Any Multi-Drug Resistant Organisms: None Reported Past Surgical History: Appendectomy, Breast Surgery, Cholecystectomy, Tubal Ligation Additional Past Surgical History / Comment(s): left breast biopsy Past Anesthesia/Blood Transfusion Reactions: Family History of Problems w/ Anesthesia Additional Past Anesthesia/Blood Transfusion Reaction / Comment(s): Mom has ponv & sob with anesthesia Past Psychological History: Anxiety Smoking Status: Never smoker Past Alcohol Use History: None Reported Past Drug Use History: Marijuana - Past Family History Mother Family Medical History: Cancer Sister(s) Family Medical History: Cancer Father Family Medical History: No Reported History General Exam - General Exam Comments Initial Comments: This is a well-developed asthenic appearing female who is awake alert oriented 3 Limitations: no limitations General appearance: alert, in no apparent distress Head exam: Present: atraumatic, normocephalic, normal inspection Eye exam: Present: normal appearance, PERRL, EOMI. Absent: scleral icterus, conjunctival injection, periorbital swelling ENT exam: Present: mucous membranes dry Neck exam: Present: normal inspection. Absent: tenderness, meningismus, lymphadenopathy Respiratory exam: Present: rales (Bibasilar rales), decreased breath sounds. Absent: respiratory distress, wheezes, rhonchi, stridor Cardiovascular Exam: Present: regular rate, normal rhythm, normal heart sounds. Absent: systolic murmur, diastolic murmur, rubs, gallop, clicks GI/Abdominal exam: Present: soft, tenderness (Mild nonspecific tenderness no guarding rebound masses or bruits), normal bowel sounds. Absent: distended, guarding, rebound, rigid Rectal exam: Present: deferred Extremities exam: Present: normal inspection, full ROM, normal capillary refill. Absent: tenderness, pedal edema, joint swelling, calf tenderness Back exam: Present: normal inspection Neurological exam: Present: alert, oriented X3, CN II-XII intact Psychiatric exam: Present: normal affect, normal mood Skin exam: Present: warm, dry, intact, normal color. Absent: rash Course Vital Signs 06/15/21 06/15/21 07:12 08:22 Temperature 98 F Pulse Rate 72 65 Respiratory 16 18 Rate Blood Pressure 113/77 126/73 O2 Sat by Pulse 94 L 97 Oximetry Medical Decision Making - Medical Decision Making Patient was eligible for the Coban antibody IV. She did tolerate this well. She'll be discharged she does have an inhaler at home we also placed on appropriate medication. She is a follow-up with her doctor return when liza madsen - Lab Data Result diagrams: 06/15/21 07:30 06/15/21 07:30 Lab Results 06/15/21 06/15/21 06/15/21 Range/Units 07:30 07:30 07:30 WBC 5.2 (3.8-10.6) k/uL RBC 4.20 (3.80-5.40) m/uL Hgb 13.4 (11.4-16.0) gm/dL Hct 38.7 (34.0-46.0) % MCV 92.3 (80.0-100.0) fL MCH 31.8 (25.0-35.0) pg MCHC 34.5 (31.0-37.0) g/dL RDW 12.7 (11.5-15.5) % Plt Count 219 (150-450) k/uL MPV 8.7 Neutrophils % 73 % Lymphocytes % 16 % Monocytes % 8 % Eosinophils % 1 % Basophils % 0 % Neutrophils # 3.8 (1.3-7.7) k/uL Lymphocytes # 0.8 L (1.0-4.8) k/uL Monocytes # 0.4 (0-1.0) k/uL Eosinophils # 0.0 (0-0.7) k/uL Basophils # 0.0 (0-0.2) k/uL PT 10.0 (9.0-12.0) sec INR 0.9 (<1.2) APTT 22.6 (22.0-30.0) sec D-Dimer 0.46 (<0.60) mg/L FEU Sodium 136 L (137-145) mmol/L Potassium 3.3 L (3.5-5.1) mmol/L Chloride 100 (98-107) mmol/L Carbon Dioxide 26 (22-30) mmol/L Anion Gap 10 mmol/L BUN 11 (7-17) mg/dL Creatinine 0.66 (0.52-1.04) mg/dL Est GFR (CKD-EPI)AfAm >90 (>60 ml/min/1.73 sqM) Est GFR (CKD-EPI)NonAf >90 (>60 ml/min/1.73 sqM) Glucose 118 H (74-99) mg/dL Plasma Lactic Acid Kenji (0.7-2.0) mmol/L Calcium 9.1 (8.4-10.2) mg/dL Magnesium 2.1 (1.6-2.3) mg/dL Total Bilirubin 0.4 (0.2-1.3) mg/dL AST 24 (14-36) U/L ALT 16 (4-34) U/L Alkaline Phosphatase 70 (38-126) U/L Lactate Dehydrogenase (313-618) U/L Creatine Kinase 28 L (30-135) U/L Troponin I (0.000-0.034) ng/mL C-Reactive Protein (<1.0) mg/dL NT-Pro-B Natriuret Pep pg/mL Total Protein 6.4 (6.3-8.2) g/dL Albumin 3.9 (3.5-5.0) g/dL Lipase (23-300) U/L Urine Color Urine Appearance (Clear) Urine pH (5.0-8.0) Ur Specific [place] (1.001-1.035) Urine Protein (Negative) Urine Glucose (UA) (Negative) Urine Ketones (Negative) Urine Blood (Negative) Urine Nitrite (Negative) Urine Bilirubin (Negative) Urine Urobilinogen (<2.0) mg/dL Ur Leukocyte Esterase (Negative) Urine WBC (0-5) /hpf Ur Squamous Epith Cells (0-4) /hpf Amorphous Sediment (None) /hpf 06/15/21 06/15/21 06/15/21 Range/Units 07:30 07:30 07:30 WBC (3.8-10.6) k/uL RBC (3.80-5.40) m/uL Hgb (11.4-16.0) gm/dL Hct (34.0-46.0) % MCV (80.0-100.0) fL MCH (25.0-35.0) pg MCHC (31.0-37.0) g/dL RDW (11.5-15.5) % Plt Count (150-450) k/uL MPV Neutrophils % % Lymphocytes % % Monocytes % % Eosinophils % % Basophils % % Neutrophils # (1.3-7.7) k/uL Lymphocytes # (1.0-4.8) k/uL Monocytes # (0-1.0) k/uL Eosinophils # (0-0.7) k/uL Basophils # (0-0.2) k/uL PT (9.0-12.0) sec INR (<1.2) APTT (22.0-30.0) sec D-Dimer (<0.60) mg/L FEU Sodium (137-145) mmol/L Potassium (3.5-5.1) mmol/L Chloride (98-107) mmol/L Carbon Dioxide (22-30) mmol/L Anion Gap mmol/L BUN (7-17) mg/dL Creatinine (0.52-1.04) mg/dL Est GFR (CKD-EPI)AfAm (>60 ml/min/1.73 sqM) Est GFR (CKD-EPI)NonAf (>60 ml/min/1.73 sqM) Glucose (74-99) mg/dL Plasma Lactic Acid Kenji 0.9 (0.7-2.0) mmol/L Calcium (8.4-10.2) mg/dL Magnesium (1.6-2.3) mg/dL Total Bilirubin (0.2-1.3) mg/dL AST (14-36) U/L ALT (4-34) U/L Alkaline Phosphatase (38-126) U/L Lactate Dehydrogenase (313-618) U/L Creatine Kinase (30-135) U/L Troponin I <0.012 (0.000-0.034) ng/mL C-Reactive Protein (<1.0) mg/dL NT-Pro-B Natriuret Pep 36 pg/mL Total Protein (6.3-8.2) g/dL Albumin (3.5-5.0) g/dL Lipase (23-300) U/L Urine Color Urine Appearance (Clear) Urine pH (5.0-8.0) Ur Specific [place] (1.001-1.035) Urine Protein (Negative) Urine Glucose (UA) (Negative) Urine Ketones (Negative) Urine Blood (Negative) Urine Nitrite (Negative) Urine Bilirubin (Negative) Urine Urobilinogen (<2.0) mg/dL Ur Leukocyte Esterase (Negative) Urine WBC (0-5) /hpf Ur Squamous Epith Cells (0-4) /hpf Amorphous Sediment (None) /hpf 06/15/21 06/15/21 Range/Units 07:48 08:18 WBC (3.8-10.6) k/uL RBC (3.80-5.40) m/uL Hgb (11.4-16.0) gm/dL Hct (34.0-46.0) % MCV (80.0-100.0) fL MCH (25.0-35.0) pg MCHC (31.0-37.0) g/dL RDW (11.5-15.5) % Plt Count (150-450) k/uL MPV Neutrophils % % Lymphocytes % % Monocytes % % Eosinophils % % Basophils % % Neutrophils # (1.3-7.7) k/uL Lymphocytes # (1.0-4.8) k/uL Monocytes # (0-1.0) k/uL Eosinophils # (0-0.7) k/uL Basophils # (0-0.2) k/uL PT (9.0-12.0) sec INR (<1.2) APTT (22.0-30.0) sec D-Dimer (<0.60) mg/L FEU Sodium (137-145) mmol/L Potassium (3.5-5.1) mmol/L Chloride (98-107) mmol/L Carbon Dioxide (22-30) mmol/L Anion Gap mmol/L BUN (7-17) mg/dL Creatinine (0.52-1.04) mg/dL Est GFR (CKD-EPI)AfAm (>60 ml/min/1.73 sqM) Est GFR (CKD-EPI)NonAf (>60 ml/min/1.73 sqM) Glucose (74-99) mg/dL Plasma Lactic Acid Kenji (0.7-2.0) mmol/L Calcium (8.4-10.2) mg/dL Magnesium (1.6-2.3) mg/dL Total Bilirubin (0.2-1.3) mg/dL AST (14-36) U/L ALT (4-34) U/L Alkaline Phosphatase (38-126) U/L Lactate Dehydrogenase 603 (313-618) U/L Creatine Kinase (30-135) U/L Troponin I (0.000-0.034) ng/mL C-Reactive Protein 2.1 H (<1.0) mg/dL NT-Pro-B Natriuret Pep pg/mL Total Protein (6.3-8.2) g/dL Albumin (3.5-5.0) g/dL Lipase 248 (23-300) U/L Urine Color Light Yellow Urine Appearance Clear (Clear) Urine pH 7.0 (5.0-8.0) Ur Specific [place] 1.007 (1.001-1.035) Urine Protein Negative (Negative) Urine Glucose (UA) Negative (Negative) Urine Ketones Negative (Negative) Urine Blood Negative (Negative) Urine Nitrite Negative (Negative) Urine Bilirubin Negative (Negative) Urine Urobilinogen <2.0 (<2.0) mg/dL Ur Leukocyte Esterase Moderate H (Negative) Urine WBC 2 (0-5) /hpf Ur Squamous Epith Cells 2 (0-4) /hpf Amorphous Sediment Rare H (None) /hpf - EKG Data -: EKG Interpreted by Hi EKG shows normal: sinus rhythm, intervals, QRS complexes, ST-T waves Rate: normal EKG Comments: Normal sinus rhythm of 70. Interval 1:30 QRS duration 82 QT since QTC 392/[address]-T wave changes. Normal EKG - Radiology Data Radiology results: report reviewed (Evidence of infiltrate consistent with the current presentation), image reviewed Disposition Clinical Impression: Pneumonia due to COVID-19 virus, Acute bronchospasm, Viral syndrome Disposition: HOME SELF-CARE Condition: Good Instructions (If sedation given, give patient instructions): Bronchospasm (ED), Viral Pneumonia (ED), Viral Syndrome (ED) Prescriptions: predniSONE [Deltasone] 20 mg PO BID #10 tab Benzonatate [Tessalon Perles] 100 mg PO TID #21 cap Is patient prescribed a controlled substance at d/c from ED?: No Referrals: Kristian Worthington DO [Primary Care Provider] - 1-2 days
[2021-06-15 07:52] LABS: Basophils % (A) 0 %; Eosinophils % (A) 1 %; HCT 38.7 % (34.0-46.0); HGB 13.4 gm/dL (11.4-16.0); Lymphocytes # (A) 0.8 k/uL (1.0-4.8); Lymphocytes % (A) 16 %; MCH 31.8 pg (25.0-35.0); MCHC 34.5 g/dL (31.0-37.0); MCV 92.3 fL (80.0-100.0); Mean Platelet Volume 8.7; Monocytes # (A) 0.4 k/uL (0-1.0); Monocytes % (A) 8 %; Neutrophils # (A) 3.8 k/uL (1.3-7.7); Neutrophils % (A) 73 %; Platelet Count 219 k/uL (150-450); RDW 12.7 % (11.5-15.5); WBC 5.2 k/uL (3.8-10.6)
[2021-06-15 07:56] LABS: ALT 16 U/L (4-34); AST 24 U/L (14-36); African American GFR (CKD) >90 (>60 ml/min/1.73 sqM); Albumin 3.9 g/dL (3.5-5.0); Alkaline Phosphatase 70 U/L (38-126); Anion Gap 10 mmol/L; Blood Urea Nitrogen 11 mg/dL (7-17); Calcium 9.1 mg/dL (8.4-10.2); Carbon Dioxide 26 mmol/L (22-30); Chloride 100 mmol/L (98-107); Creatine Kinase 28 U/L (30-135); Glucose 118 mg/dL (74-99); Magnesium 2.1 mg/dL (1.6-2.3); Non-African American GFR(CKD) >90 (>60 ml/min/1.73 sqM); Potassium 3.3 mmol/L (3.5-5.1); Sodium 136 mmol/L (137-145); Total Bilirubin 0.4 mg/dL (0.2-1.3); Total Protein 6.4 g/dL (6.3-8.2)
--- NOTE | 2021-06-15 08:01 | XR ---
EXAMINATION TYPE: XR chest 1V portable DATE OF EXAM: 06/15/2021 COMPARISON: None INDICATION: Cough headache suspected Covid TECHNIQUE: Single frontal view of the chest is obtained. FINDINGS: The heart size is normal. The pulmonary vasculature is normal. Some minimal platelike atelectasis at the right base. Peripheral infiltrate versus the left mid and l ower lung field. Correlate for atypical pneumonia IMPRESSION: 1. Findings suggestive for atypical pneumonia.
[2021-06-15 08:06] LABS: INR 0.9 (<1.2); Partial Thromboplastin Time 22.6 sec (22.0-30.0)
--- NOTE | 2021-06-15 08:14 | XR ---
EXAMINATION TYPE: XR KUB portable DATE OF EXAM: 06/15/2021 COMPARISON: 07/21/2014 INDICATION: Abdomen pain nausea x2 days TECHNIQUE: Single view abdomen mobile apparatus FINDINGS: There is a nonspecific bowel gas pattern. Air is present in the colon and small bowel loops. Psoas margins are normal. No organomegaly is present. IMPRESSION: 1. Nonspecific abdomen
[2021-06-15 08:23] VITALS: BP 126/73; PULSE 65; RESP 18
[2021-06-15 08:26] LABS: C Reactive Protein 2.1 mg/dL (<1.0)
[2021-06-15 09:00] LABS: Amorphous Sediment,Urine Rare /hpf; Appearance,Urine Clear (Clear); Bilirubin,Urine Negative (Negative); Blood,Urine Negative (Negative); Color,Urine Light Yellow; Glucose,Urine (UA) Negative (Negative); Ketones,Urine Negative (Negative); Leukocyte Esterase,Urine Moderate (Negative); Nitrite,Urine Negative (Negative); Protein,Urine Negative (Negative); Specific Gravity,Urine 1.007 (1.001-1.035); Squamous Epithelial Cell,Urine 2 /hpf (0-4); Urobilinogen,Urine <2.0 mg/dL (<2.0); WBC,Urine 2 /hpf (0-5)
[2021-06-15] MEDS ORDERED: SODIUM CHLORIDE 0.9% 50 ML IVPB ONE (10:30)
[2021-06-15] MEDS ORDERED: CASIRIVIMAB/IMDEVIMAB (EUA) 1,200 MG in SODIUM CHLORIDE 0.9% 100 ML IVPB ONE (10:30)
[2021-06-15] MEDS ORDERED: BENZONATATE 100 MG CAP PO STA (10:55)
[2021-06-15] MEDS ORDERED: predniSONE 50 MG TAB PO STA (11:21)
[2021-06-15 12:11] LABS: Ferritin 745.3 ng/mL (10.0-291.0)
== END 2021-06-15 11:28 | disposition home or self-care (01) ==
LOC: EC 07:03
DX: U07.1 COVID-19 (principal); J12.82 Pneumonia due to coronavirus disease 2019; J45.909 Unspecified asthma, uncomplicated; K21.9 Gastro-esophageal reflux disease without esophagitis; M06.9 Rheumatoid arthritis, unspecified; M79.7 Fibromyalgia; F12.90 Cannabis use, unspecified, uncomplicated; Z79.52 Long term (current) use of systemic steroids; Z79.890 Hormone replacement therapy; Z79.899 Other long term (current) drug therapy
CPT/HCPCS: 36415; 71045; 74018; 80053; 81001; 82550; 82728; 83605; 83615; 83690; 83735; 83880; 84145; 84484; 85025; 85379; 85610; 85730; 86140; 93005; 94640; 96361; 96365; 96375; 99285

== ENCOUNTER 2021-06-15 18:12 | Observation (INO) | payer OTHER ==
--- NOTE | 2021-06-15 18:51 | ED ---
General Adult HPI - General Chief complaint: Dizziness Stated complaint: Revisit,COVID+ Weakness Time Seen by Provider: 06/15/21 18:41 Source: patient, RN notes reviewed, old records reviewed Mode of arrival: wheelchair Limitations: no limitations - History of Present Illness Initial comments: Patient is a 65-year-old female with past medical history remarkable for asthma, thyroid disorder, osteoarthritis, fibromyalgia was recently diagnosed with COVID 19 and received the monoclonal antibodies this morning at our emergency emergency department but returns tonight still feeling fatigued. She states she is unable to tolerate by mouth intake at home. She states she feels fatigued and tired. She is weak all over. States her cough is improved. She denies any chest pain, abdominal pain. Does endorse nausea. She states she hasn't thrown up at she also is not eating anything. She does endorse some episodes of diarrhea over the last few days. She denies any headache. She returns today for worsening fatigue and "feeling worse." She states her nausea and loss of appetite as well as. Her fatigue is worse. She states she is feeling somewhat worse overall due to the nausea, loss of appetite. Is not taking any medications for her fevers. She was not vaccinated for COVID-19. - Related Data Home Medications Medication Instructions Recorded Confirmed Cholecalciferol [Vitamin D3] 1,000 unit PO DAILY 08/21/15 06/15/21 Cetirizine HCl [Zyrtec] 10 mg PO DAILY 01/05/21 06/15/21 Levothyroxine Sodium [Synthroid] 100 mcg PO DAILY 01/05/21 06/15/21 Albuterol Sulfate [Proair Hfa] 1 - 2 puff INHALATION RT-Q8H PRN 06/15/21 06/15/21 Magnesium Oxide [Mag-Ox] 250 mg PO DAILY 06/15/21 06/15/21 Zinc 50 mg PO DAILY 06/15/21 06/15/21 traZODone HCL [Desyrel] 50 mg PO HS 06/15/21 06/15/21 Previous Rx's Medication Instructions Recorded Benzonatate [Tessalon Perles] 100 mg PO TID #21 cap 06/15/21 predniSONE [Deltasone] 20 mg PO BID #10 tab 06/15/21 Allergies Allergy/AdvReac Type Severity Reaction Status Date / Time No Known Allergies Allergy Verified 06/15/21 19:07 Review of Systems ROS Statement: Those systems with pertinent positive or pertinent negative responses have been documented in the HPI. Review of Systems: CONST: Endorses fatigue, fever EYES: Denies blurry vision ENT: Denies nasal congestion C/V: Denies Chest pain RESP: Endorses cough GI: Endorses nausea : Denies dysuria SKIN: Denies rash. MSK: Denies joint pain. NEURO: Denies headache ROS Other: All systems not noted in ROS Statement are negative. Past Medical History Past Medical History: Asthma, Eye Disorder, Fibromyalgia, GERD/Reflux, Osteoarthritis (OA), Rheumatoid Arthritis (RA), Thyroid Disorder Additional Past Medical History / Comment(s): MUSCLE IMBALANCE LT EYE. Hiatal Hernia. hx Endometriosis, Anemia. Lower back pain, "precancer left breast", "back muscles lock up" History of Any Multi-Drug Resistant Organisms: None Reported Past Surgical History: Appendectomy, Breast Surgery, Cholecystectomy, Tubal Ligation Additional Past Surgical History / Comment(s): left breast biopsy Past Anesthesia/Blood Transfusion Reactions: Family History of Problems w/ Anesthesia Additional Past Anesthesia/Blood Transfusion Reaction / Comment(s): Mom has ponv & sob with anesthesia Past Psychological History: Anxiety Smoking Status: Never smoker Past Alcohol Use History: None Reported Past Drug Use History: Marijuana - Past Family History Mother Family Medical History: Cancer Sister(s) Family Medical History: Cancer Father Family Medical History: No Reported History General Exam - General Exam Comments Initial Comments: General: Appears fatigued. HEAD: Normal with no signs of head trauma. EYES: PERRLA, EOMI, conjunctiva normal, no discharge. Pulses are 3 mm and equal bilaterally. ENT: Hearing grossly Intact. Dry mucous membranes. RESPIRATORY: Relatively clear breath sounds bilaterally without any obvious rhonchi or wheezing. C/V: Patient is tachycardic with a regular rhythm. S1 and S2 auscultated. No peripheral edema. Peripheral pulses are 2+ intact. ABD: Abd is soft, nontender, nondistended EXT: Normal range of motion, no obvious deformity SKIN: No rashes or lesions observed on exposed skin. NEURO: Alert and oriented x 4. Cranial nerves II-XII intact. No focal sensory or strength deficits. Limitations: no limitations Course Vital Signs 06/15/21 18:30 Temperature 101.5 F H Pulse Rate 105 H Respiratory 22 Rate Blood Pressure 108/75 O2 Sat by Pulse 93 L Oximetry Medical Decision Making - Medical Decision Making Based on the patient's presentation and physical exam, I'm concerned for acute dehydration the patient. She is having symptoms secondary to her acute COVID-19 infection. She is currently febrile and mildly tachycardic. Patient is adequately oxygenating at 93% on room air. She'll be placed in airborne precautions. We will obtain repeat his lavatory studies as well as a repeat EKG for screening purposes. She does not require any imaging at this time. She'll be given a 1 L fluid bolus as well as IV Zofran, Tylenol, Toradol for pain management. She was in agreement this plan. Patient's EKG shows no signs of acute ischemia. Laboratory studies are remarkable for mild decreased bicarb at 21. Remainder of her labs are unremarkable. On reevaluation, patient is still not tolerating by mouth intake at this time. She feels extremely nauseous whenever she tries to eat and refuses to do so. I informed her of the results of her laboratory studies. Patient's fever is imp roved as well. I do believe it is best for her to be admitted at this time due to the persistent nausea and vomiting and inability to tolerate by mouth intake. She was in agreement this plan. I spoke with the admitting team physician certified pathology assistant, Lalo Cowan, who accepted the patient. Patient will be admitted to Dr. Velasquez. Patient was admitted to observation in stable condition. - Lab Data Result diagrams: 06/15/21 19:06 06/15/21 19:06 Lab Results 06/15/21 06/15/21 Range/Units 19:06 19:06 WBC 9.0 (3.8-10.6) k/uL RBC 4.34 (3.80-5.40) m/uL Hgb 13.7 (11.4-16.0) gm/dL Hct 39.9 (34.0-46.0) % MCV 91.9 (80.0-100.0) fL MCH 31.7 (25.0-35.0) pg MCHC 34.5 (31.0-37.0) g/dL RDW 12.5 (11.5-15.5) % Plt Count 245 (150-450) k/uL MPV 8.5 Neutrophils % 92 % Lymphocytes % 4 % Monocytes % 2 % Eosinophils % 0 % Basophils % 0 % Neutrophils # 8.3 H (1.3-7.7) k/uL Lymphocytes # 0.4 L (1.0-4.8) k/uL Monocytes # 0.2 (0-1.0) k/uL Eosinophils # 0.0 (0-0.7) k/uL Basophils # 0.0 (0-0.2) k/uL Sodium 136 L (137-145) mmol/L Potassium 3.6 (3.5-5.1) mmol/L Chloride 103 (98-107) mmol/L Carbon Dioxide 21 L (22-30) mmol/L Anion Gap 12 mmol/L BUN 11 (7-17) mg/dL Creatinine 0.64 (0.52-1.04) mg/dL Est GFR (CKD-EPI)AfAm >90 (>60 ml/min/1.73 sqM) Est GFR (CKD-EPI)NonAf >90 (>60 ml/min/1.73 sqM) Glucose 162 H (74-99) mg/dL Calcium 9.2 (8.4-10.2) mg/dL Magnesium 2.0 (1.6-2.3) mg/dL - EKG Data -: EKG Interpreted by Me EKG Comments: 12-lead Electrocardiogram Interpretation Note EKG was reviewed and interpreted by myself. 12-lead ECG performed at 1859 is interpreted by me as revealing normal sinus rhythm at a rate of 98 beats per minute. [place] is normal. [place] interval is 152 ms, QRS duration 66 ms, QTc is 421 ms.. There were no ST or T wave abnormalities to suggest myocardial ischemia or injury. R wave progression across the precordium was satisfactory. By my inter pretation this EKG is non-diagnostic for acute ischemia. Disposition Clinical Impression: COVID-19, Nausea and vomiting, Febrile illness, Dehydration Disposition: ADMITTED IP TO THIS HOSP Condition: Stable
[2021-06-15] MEDS ORDERED: SODIUM CHLORIDE 0.9% 1,000 ML IV STA ×2 (18:57→20:28)
[2021-06-15] MEDS ORDERED: ACETAMINOPHEN TAB 500 MG TAB PO STA (18:57)
[2021-06-15] MEDS ORDERED: KETOROLAC 15 MG/ML 1 ML VIAL IVP STA (18:57)
[2021-06-15] MEDS ORDERED: ONDANSETRON 4 MG/2 ML VIAL IVP STA (18:57)
[2021-06-15 19:13] LABS: Basophils % (A) 0 %; Eosinophils % (A) 0 %; HCT 39.9 % (34.0-46.0); HGB 13.7 gm/dL (11.4-16.0); Lymphocytes # (A) 0.4 k/uL (1.0-4.8); Lymphocytes % (A) 4 %; MCH 31.7 pg (25.0-35.0); MCHC 34.5 g/dL (31.0-37.0); MCV 91.9 fL (80.0-100.0); Mean Platelet Volume 8.5; Monocytes # (A) 0.2 k/uL (0-1.0); Monocytes % (A) 2 %; Neutrophils # (A) 8.3 k/uL (1.3-7.7); Neutrophils % (A) 92 %; Platelet Count 245 k/uL (150-450); RBC 4.34 m/uL (3.80-5.40); RDW 12.5 % (11.5-15.5)
[2021-06-15 19:21] LABS: African American GFR (CKD) >90 (>60 ml/min/1.73 sqM); Anion Gap 12 mmol/L; Blood Urea Nitrogen 11 mg/dL (7-17); Calcium 9.2 mg/dL (8.4-10.2); Carbon Dioxide 21 mmol/L (22-30); Chloride 103 mmol/L (98-107); Glucose 162 mg/dL (74-99); Non-African American GFR(CKD) >90 (>60 ml/min/1.73 sqM); Potassium 3.6 mmol/L (3.5-5.1); Sodium 136 mmol/L (137-145)
[2021-06-15] MEDS ORDERED: IBUPROFEN 400 MG TAB PO PRN (21:02)
[2021-06-15] MEDS ORDERED: ALBUTEROL HFA INHALER INHALATION PRN (21:03)
[2021-06-16] MEDS: HEPARIN SODIUM,PORCINE/PF 5,000 UNIT/0.5 ML SYRINGE SQ SCH ×3 (07:06→16:44)
[2021-06-16] MEDS: BENZONATATE 100 MG CAP PO SCH ×4 (07:06→21:55)
[2021-06-16] MEDS: MAGNESIUM OXIDE 400 MG TAB PO SCH (08:31)
[2021-06-16] MEDS: LEVOTHYROXINE 100 MCG TAB PO SCH (08:31)
[2021-06-16] MEDS: ZINC SULFATE 220 MG CAP PO SCH (08:31)
[2021-06-16] MEDS: ACETAMINOPHEN TAB 325 MG TAB PO PRN ×2 (08:50→23:17)
[2021-06-16] MEDS: ONDANSETRON 4 MG/2 ML VIAL IVP PRN (08:50)
[2021-06-16] MEDS: NAPROXEN 250 MG TAB PO SCH ×2 (14:44→21:55)
[2021-06-16] MEDS: LACTATED RINGERS 1,000 ML IV SCH ×2 (16:26→21:55)
--- NOTE | 2021-06-16 20:39 | P.HPIM ---
History of Present Illness H&P Date: 06/16/21 Chief Complaint: Dizzy History of presenting complaint: This is a pleasant [address] Worthington. Chronic stable medical conditions include asthma, fibromyalgia, GERD, rheumatoid arthritis which she does not follow with anybody, hypothyroid, hiatal hernia, muscle spasms. Patient started off as respiratory symptoms about a week ago. Yesterday morning she presented to ER and received monoclonal antibodies and was discharged home. She did go to the ER in the evening feeling tired and rundown. She has had poor appetite. No loss of smell or taste. She did have diarrhea at home. We directly improved yesterday. Patient been having chills. Has been feeling dizzy lightheaded to the extension patient passed out. Patient's pulse ox was good on presentation. Patient has not received the COVID 19 vaccination. Patient did have a fever to 101.5 in the ER. This morning patient did eat some breakfast Review of systems: GEN.: Weak diet and rundown decreased appetite EYES: None HEENT: None NECK: None RESPIRATORY: Cough shortness of breath CARDIOVASCULAR: None GASTROINTESTINAL: Diarrhea, improved GENITOURINARY: No urinary symptoms MUSCULOSKELETAL: Aches and pains LYMPHATICS: None HEMATOLOGICAL: None PSYCHIATRY: None NEUROLOGICAL: None Past medical history to include: Asthma, fibromyalgia, GERD, rheumatoid arthritis for which she does not follow with any limb, hypothyroid, hiatal hernia, endometriosis, precancer left breast, muscle spasms, anxiety Social history: Patient started smoking at age of 18 and stopped in 2006. 2-5 cigarettes a day. She does use medical marijuana sometimes. Alcohol occasionally. Lives with her grandson Family history: Breast cancer Physical examination: VITAL SIGNS: 101.5, 105, 22, 108/75, 93% room air upon presentation GENERAL: BMI 23.3, laying in bed, tired. EYES: Pupils equal. Conjunctiva normal. HEENT: External appearance of nose and ears normal, oral cavity-dry. NECK: JVD not raised; masses not palpable. HEART: First and second heart sounds are normal; no edema. LUNGS: Respiratory rate normal; decreased breath sounds. ABDOMEN: Soft, nontender, liver spleen not palpable, no masses palpable. PSYCH: Alert and oriented x3; mood and affect tiredl. NEUROLOGICAL: Cranial nerves grossly intact; no facial asymmetry, power and sensation grossly intact. LYMPHATICS: No lymph nodes palpable in the axilla and neck INVESTIGATIONS, reviewed in the clinical context: White count 11-year-old woman 13.7 platelets 2453.6 BUN 11 creatinine 0.64 CRP 2.1 pro-calcitonin 0.1, d-dimer 0.46 EKG tracing personally reviewed by me-normal sinus rhythm, rate 98 Chest x-ray film personally reviewed by me-possible infiltrate Assessment and plan: -Acute dehydration from decreased oral intake, causing syncope IV fluids -COVID 19 pneumonia Patient received monoclonal antibodies yesterday morning. Pulse ox is put on room air. No indication for steroids. Give supplemental vitamin C vitamin D an d zinc. Patient educated about incentive spirometry -Intermittent asthma Use albuterol as needed -Chronic fibromyalgia Naproxen 250 twice a day -Chronic rheumatoid arthritis. Patient does not take any treatment for the same. Does not follow with anyone. Naproxen 250 twice daily -Hiatal hernia with GERD Pepcid 20 mg twice a day -Chronic insomnia from medical conditions Trazodone 50 mg daily at bedtime Home medications reviewed is new. IV fluids. Naproxen 250 twice daily. Soft bland diet. Increase activity as noted. Lovenox 40 mg subcu for DVT prophylaxis. Care was discussed with the patient. Questions answered. Hopefully discharge tomorrow. Patient feeling better this morning Past Medical History Past Medical History: Asthma, Eye Disorder, Fibromyalgia, GERD/Reflux, Osteoarthritis (OA), Rheumatoid Arthritis (RA), Thyroid Disorder Additional Past Medical History / Comment(s): MUSCLE IMBALANCE LT EYE. Hiatal Hernia. hx Endometriosis, Anemia. Lower back pain, "precancer left breast", "back muscles lock up" History of Any Multi-Drug Resistant Organisms: None Reported Past Surgical History: Appendectomy, Breast Surgery, Cholecystectomy, Tubal Ligation Additional Past Surgical History / Comment(s): left breast biopsy Past Anesthesia/Blood Transfusion Reactions: Family History of Problems w/ Anesthesia Additional Past Anesthesia/Blood Transfusion Reaction / Comment(s): Mom has ponv & sob with anesthesia Past Psychological History: Anxiety Smoking Status: Former smoker Past Alcohol Use History: None Reported Additional Past Alcohol Use History / Comment(s): started smoking @ age 18 (1973)-quit 2006- was 2-5 cigarettes a day Past Drug Use History: Marijuana Additional Drug Use History / Comment(s): medical marijuana - states uses when pain from fibromyalgia gets too bad. - Past Family History Mother Family Medical History: Cancer Sister(s) Family Medical History: Cancer Father Family Medical History: No Reported History Medications and Allergies Home Medications Medication Instructions Recorded Confirmed Type Cholecalciferol [Vitamin D3] 1,000 unit PO DAILY 08/21/15 06/15/21 History Cetirizine HCl [Zyrtec] 10 mg PO DAILY 01/05/21 06/15/21 History Levothyroxine Sodium [Synthroid] 100 mcg PO DAILY 01/05/21 06/15/21 History Albuterol Sulfate [Proair Hfa] 1 - 2 puff INHALATION RT-Q8H PRN 06/15/21 06/15/21 History Benzonatate [Tessalon Perles] 100 mg PO TID #21 cap 06/15/21 06/15/21 Rx Magnesium Oxide [Mag-Ox] 250 mg PO DAILY 06/15/21 06/15/21 History Zinc 50 mg PO DAILY 06/15/21 06/15/21 History predniSONE [Deltasone] 20 mg PO BID #10 tab 06/15/21 06/15/21 Rx traZODone HCL [Desyrel] 50 mg PO HS 06/15/21 06/15/21 History Allergies Allergy/AdvReac Type Severity Reaction Status Date / Time No Known Allergies Allergy Verified 06/15/21 19:07 Physical Exam Vitals: Vital Signs Temp Pulse Pulse Resp BP BP Pulse Ox 06/16/21 08:06 99.2 F 60 17 118/75 95 06/16/21 08:00 60 17 06/16/21 06:00 60 18 102/76 96 06/16/21 02:00 62 18 107/74 97 06/15/21 23:00 98.3 F 06/15/21 22:00 72 18 90/64 95 06/15/21 18:30 101.5 F H 105 H 22 108/75 93 L Intake and Output 06/15/21 06/16/21 06/16/21 22:59 06:59 14:59 Other: Weight 63.503 kg Results CBC & Chem 7: 06/15/21 19:06 06/15/21 19:06 Labs: Abnormal Lab Results - Last 24 Hours (Table) 06/15/21 06/15/21 Range/Units 19:06 19:06 Neutrophils # 8.3 H (1.3-7.7) k/uL Lymphocytes # 0.4 L (1.0-4.8) k/uL Sodium 136 L (137-145) mmol/L Carbon Dioxide 21 L (22-30) mmol/L Glucose 162 H (74-99) mg/dL Thrombosis Risk Factor Assmnt - Choose All That Apply Any of the Below Risk Factors Present?: No Other Risk Factors: Yes Each Risk Factor Represents 2 Points: Age 61-74 years Thrombosis Risk Factor Assessment Total Risk Factor Score: 2 Thrombosis Risk Factor Assessment Level: Low Risk
[2021-06-16] MEDS: traZODone HCL 50 MG TAB PO SCH (21:55)
[2021-06-17] MEDS: LEVOTHYROXINE 100 MCG TAB PO SCH (05:40)
[2021-06-17] MEDS: LACTATED RINGERS 1,000 ML IV SCH ×3 (05:41→20:49)
[2021-06-17] MEDS: ONDANSETRON 4 MG/2 ML VIAL IVP PRN ×3 (08:13→20:52)
[2021-06-17] MEDS: BENZONATATE 100 MG CAP PO SCH ×3 (08:14→20:49)
[2021-06-17] MEDS: ZINC SULFATE 220 MG CAP PO SCH (08:14)
[2021-06-17] MEDS: MAGNESIUM OXIDE 400 MG TAB PO SCH (08:14)
[2021-06-17] MEDS: NAPROXEN 250 MG TAB PO SCH ×2 (08:14→20:49)
[2021-06-17] MEDS: ENOXAPARIN 40 MG/0.4 ML SYRINGE SQ SCH (08:14)
[2021-06-17] MEDS: ALBUTEROL HFA INHALER INHALATION PRN ×2 (09:35→17:29)
[2021-06-17] MEDS: ACETAMINOPHEN TAB 325 MG TAB PO PRN (15:52)
--- NOTE | 2021-06-17 20:46 | P.PN ---
Progress Note - Text Progress Note Date: 06/17/21 Chief Complaint: Dizzy History of presenting complaint: This is a pleasant [address] Worthington. Chronic stable medical conditions include asthma, fibromyalgia, GERD, rheumatoid arthritis which she does not follow with anybody, hypothyroid, hiatal hernia, muscle spasms. Patient started off as respiratory symptoms about a week ago. Yesterday morning she presented to ER and received monoclonal antibodies and was discharged home. She did go to the ER in the evening feeling tired and rundown. She has had poor appetite. No loss of smell or taste. She did have diarrhea at home. We directly improved yesterday. Patient been having chills. Has been feeling dizzy lightheaded to the extension patient passed out. Patient's pulse ox was good on presentation. Patient has not received the COVID 19 vaccination. Patient did have a fever to 101.5 in the ER. This morning patient did eat some breakfast Admitted with asthenia, chronic medical debility, dehydration syncope from COVID 19. Started on IV fluids. 06/17/2021: Patient started some diet. Complaining of nausea. Did discuss with the patient at length that she can be at home and to make sure that she eats. Patient requesting 1 more day stay. Continue IV fluids. Use scopolamine patch. Review of systems: GEN.: Weak diet and rundown decreased appetite EYES: None HEENT: None NECK: None RESPIRATORY: Cough shortness of breath CARDIOVASCULAR: None GASTROINTESTINAL: Diarrhea, improved GENITOURINARY: No urinary symptoms MUSCULOSKELETAL: Aches and pains LYMPHATICS: None HEMATOLOGICAL: None PSYCHIATRY: None NEUROLOGICAL: None Past medical history to include: Asthma, fibromyalgia, GERD, rheumatoid arthritis for which she does not follow with any limb, hypothyroid, hiatal hernia, endometriosis, precancer left breast, muscle spasms, anxiety Social history: Patient started smoking at age of 18 and stopped in 2006. 2-5 cigarettes a day. She does use medical marijuana sometimes. Alcohol occasionally. Lives with her grandson Family history: Breast cancer Physical examination: VITAL SIGNS: 98.2, 62, 18, 124/85, 95% room air GENERAL: Sitting up in a chair, awake EYES: Pupils equal. Conjunctiva normal. HEENT: External appearance of nose and ears normal, oral cavity-dry. NECK: JVD not raised; masses not palpable. HEART: First and second heart sounds are normal; no edema. LUNGS: Respiratory rate normal; decreased breath sounds. ABDOMEN: Soft, nontender, liver spleen not palpable, no masses palpable. PSYCH: Alert and oriented x3; mood and affect tiredl. INVESTIGATIONS, reviewed in the clinical context: White count 11-year-old woman 13.7 platelets 2453.6 BUN 11 creatinine 0.64 CRP 2.1 pro-calcitonin 0.1, d-dimer 0.46 EKG tracing personally reviewed by me-normal sinus rhythm, rate 98 Chest x-ray film personally reviewed by me-possible infiltrate Assessment and plan: -Acute dehydration from decreased oral intake, causing syncope IV fluids, cut back -COVID 19 pneumonia Patient received monoclonal antibodies yesterday morning. Pulse ox is 95% on ro om air. No indication for steroids. vitamin C vitamin D and zinc. Encourage incentive spirometry -Intermittent asthma Use albuterol as needed -Chronic fibromyalgia Naproxen 250 twice a day -Chronic rheumatoid arthritis. Patient does not take any treatment for the same. Does not follow with anyone. Naproxen 250 twice daily -Hiatal hernia with GERD Pepcid 20 mg twice a day -Chronic insomnia from medical conditions Trazodone 50 mg daily at bedtime Patient requesting on most days stay in the hospital. New scopolamine patch. Encourage oral intake. Increase activity. Cutback IV fluid 75 mL an hour
[2021-06-17] MEDS: traZODone HCL 50 MG TAB PO SCH (20:48)
[2021-06-17] MEDS ORDERED: SCOPOLAMINE 1.5MG/72HR PATCH TRANSDERM SCH (21:00)
[2021-06-18] MEDS: LACTATED RINGERS 1,000 ML IV SCH (05:43)
[2021-06-18] MEDS: LEVOTHYROXINE 100 MCG TAB PO SCH (06:22)
[2021-06-18] MEDS: NAPROXEN 250 MG TAB PO SCH (08:38)
[2021-06-18] MEDS: ONDANSETRON 4 MG/2 ML VIAL IVP PRN (08:38)
[2021-06-18] MEDS: MAGNESIUM OXIDE 400 MG TAB PO SCH (08:38)
[2021-06-18] MEDS: ZINC SULFATE 220 MG CAP PO SCH (08:38)
[2021-06-18] MEDS: BENZONATATE 100 MG CAP PO SCH (08:39)
[2021-06-18] MEDS: ENOXAPARIN 40 MG/0.4 ML SYRINGE SQ SCH (08:39)
[2021-06-18] MEDS: ALBUTEROL HFA INHALER INHALATION PRN (09:40)
[2021-06-18 09:52] VITALS: BP 134/78; PULSE 63; RESP 17; TEMP 98.4
[2021-06-18] MEDS ORDERED: BENZOCAINE/MENTHOL LOZENG 1 EACH LOZENGE MUCOUS MEM PRN (10:54)
[2021-06-18] MEDS: ACETAMINOPHEN TAB 325 MG TAB PO PRN (12:24)
--- NOTE | 2021-06-19 | P.DS ---
Providers Date of admission: 06/15/21 21:02 Expected date of discharge: 06/18/21 Attending physician: Chay Duarte Primary care physician: Kristian Worthington [facility] Course: History of presenting complaint: This is a pleasant [address] Worthington. Chronic stable medical conditions include asthma, fibromyalgia, GERD, rheumatoid arthritis which she does not follow with anybody, hypothyroid, hiatal hernia, muscle spasms. P atient started off as respiratory symptoms about a week ago. Yesterday morning she presented to ER and received monoclonal antibodies and was discharged home. She did go to the ER in the evening feeling tired and rundown. She has had poor appetite. No loss of smell or taste. She did have diarrhea at home. We directly improved yesterday. Patient been having chills. Has been feeling dizzy lightheaded to the extension patient passed out. Patient's pulse ox was good on presentation. Patient has not received the COVID 19 vaccination. Patient did have a fever to 101.5 in the ER. This morning patient did eat some breakfast Admitted with asthenia, chronic medical debility, dehydration syncope from COVID 19. Started on IV fluids. 06/17/2021: Patient started some diet. Complaining of nausea. Did discuss with the patient at length that she can be at home and to make sure that she eats. Patient requesting 1 more day stay. Continue IV fluids. Use scopolamine patch. 06/18/2021: Doing better. Received fluids overnight. Short of breath. Pulse ox 97% on room air. Discussed with the patient to do incentive spirometry. Maintain oral intake. Did discuss the symptoms could persist for a while. Questions answered Past medical history to include: Asthma, fibromyalgia, GERD, rheumatoid arthritis for which she does not follow with any limb, hypothyroid, hiatal hernia, endometriosis, precancer left breast, muscle spasms, anxiety Social history: Patient started smoking at age of 18 and stopped in 2006. 2-5 cigarettes a day. She does use medical marijuana sometimes. Alcohol occasionally. Lives with her grandson Family history: Breast cancer Physical examination: VITAL SIGNS: 98.4, 63, 17, 134/78, 97% room air GENERAL: Sitting up in a chair, awake EYES: Pupils equal. Conjunctiva normal. HEENT: External appearance of nose and ears normal, oral cavity-dry. NECK: JVD not raised; masses not palpable. HEART: First and second heart sounds are normal; no edema. LUNGS: Respiratory rate normal; decreased breath sounds. ABDOMEN: Soft, nontender, liver spleen not palpable, no masses palpable. PSYCH: Alert and oriented x3; mood and affect tired. INVESTIGATIONS, reviewed in the clinical context: June 18: D-dimer 0.42, CRP 1.8 White count 11-year-old woman 13.7 platelets 2453.6 BUN 11 creatinine 0.64 CRP 2.1 pro-calcitonin 0.1, d-dimer 0.46 EKG tracing personally reviewed by me-normal sinus rhythm, rate 98 Chest x-ray film personally reviewed by me-possible infiltrate Assessment and plan: -Acute dehydration from decreased oral intake, causing syncope: Improved IV fluids, given -COVID 19 pneumonia Patient received monoclonal antibodies yesterday morning. Pulse ox is 97% on room air. No indication for steroids. vitamin C vitamin D and zinc. incentive spirometry -Intermittent asthma Use albuterol as needed -Chronic fibromyalgia Naproxen 250 twice a day -Chronic rheumatoid arthritis. Patient does not take any treatment for the pricilla e. Does not follow with anyone. Naproxen 250 twice daily -Hiatal hernia with GERD Pepcid 20 mg twice a day -Chronic insomnia from medical conditions Trazodone 50 mg daily at bedtime Disposition: Home Plan - Discharge Summary New Discharge Prescriptions: New Naproxen [Naprosyn] 250 mg PO BID #30 tab Continue Cholecalciferol [Vitamin D3 (25 Mcg = 1000 Iu)] 1,000 unit PO DAILY Benzonatate [Tessalon Perles] 100 mg PO TID #21 cap Zinc 50 mg PO DAILY traZODone HCL [Desyrel] 50 mg PO HS Magnesium Oxide [Mag-Ox] 250 mg PO DAILY Levothyroxine Sodium [Synthroid] 100 mcg PO DAILY Albuterol Sulfate [Proair Hfa] 1 - 2 puff INHALATION RT-Q8H PRN PRN Reason: Shortness Of Breath Discontinued predniSONE [Deltasone] 20 mg PO BID #10 tab Cetirizine HCl [Zyrtec] 10 mg PO DAILY Discharge Medication List Cholecalciferol [Vitamin D3 (25 Mcg = 1000 Iu)] 1,000 unit PO DAILY 08/21/15 [History] Levothyroxine Sodium [Synthroid] 100 mcg PO DAILY 01/05/21 [History] Albuterol Sulfate [Proair Hfa] 1 - 2 puff INHALATION RT-Q8H PRN 06/15/21 [History] Benzonatate [Tessalon Perles] 100 mg PO TID #21 cap 06/15/21 [Rx] Magnesium Oxide [Mag-Ox] 250 mg PO DAILY 06/15/21 [History] Zinc 50 mg PO DAILY 06/15/21 [History] traZODone HCL [Desyrel] 50 mg PO HS 06/15/21 [History] Naproxen [Naprosyn] 250 mg PO BID #30 tab 06/18/21 [Rx] Follow up Appointment(s)/Referral(s): Kristian Worthington DO [Primary Care Provider] - 1-2 days (PLEASE CALL [facility]ICE FOR [facility] THE [facility] APPOINTMENT ) Patient Instructions/Handouts: Coronavirus Disease 2019 (COVID-19) Discharge Disposition: HOME SELF-CARE
== END 2021-06-18 13:10 | disposition home or self-care (01) ==
LOC: EC 18:12 → 6NMEDSUR 21:02 → 4SSUR 06-16 01:41
PROVIDERS: ADMIT Hospitalist; ATTEND Hospitalist
DX: U07.1 COVID-19 (principal); E86.0 Dehydration; F41.9 Anxiety disorder, unspecified; F51.04 Psychophysiologic insomnia; J12.82 Pneumonia due to coronavirus disease 2019; J45.20 Mild intermittent asthma, uncomplicated; K21.9 Gastro-esophageal reflux disease without esophagitis; K44.9 Diaphragmatic hernia without obstruction or gangrene; M06.9 Rheumatoid arthritis, unspecified; M79.7 Fibromyalgia; Z79.890 Hormone replacement therapy; Z79.899 Other long term (current) drug therapy; Z80.3 Family history of malignant neoplasm of breast; Z85.3 Personal history of malignant neoplasm of breast; Z87.891 Personal history of nicotine dependence
CPT/HCPCS: 96376 ×3; 96372 ×3; 96361 ×3; 96374; 96375; 99285; 36415; 94640 ×4; 93005; 85379; 80048; 83735; 85025; 86140; 87635; G0378 ×4; J2405 ×4; J1650 ×2; J1885; J1644

== ENCOUNTER → 2021-11-09 | Outpatient (CLI) | payer OTHER ==
--- NOTE | 2021-11-09 14:06 | MM ---
Reason for exam: additional evaluation requested from prior study. Last mammogram was performed 9 months ago. History: Patient is postmenopausal and has history of breast cancer at age 65. Family history of breast cancer in maternal grandmother at age 49, breast cancer in mother at age 34, and breast cancer in sister at age 42. Malignant MG pre op needle loc LT of the left breast, January 06, 2021. Lumpectomy of the left breast, January 06, 2021. Stereotactic core biopsy of the left breast, November 13, 2020. Physical Findings: Nurse did not find any significant physical abnormalities on exam. MG 3D Diag Mammo W/Cad KATHRYN Bilateral CC and MLO view(s) were taken. Prior study comparison: October 01, 2020, bilateral mammogram, performed at [facility]. The breast tissue is heterogeneously dense. This may lower the sensitivity of mammography. Finding: Architectural distortion in the left breast consistent with known excisional changes. There is no discrete abnormality. These results were verbally communicated with the patient and result sheet given to the patient on 11/09/21. ASSESSMENT: Benign, BI-RAD 2 RECOMMENDATION: Follow-up diagnostic mammogram of both breasts in 1 year.
== END | disposition home or self-care (01) ==
LOC: RADMAMWWP 12:45
PROVIDERS: ATTEND Radiology Radiation Oncology
DX: D05.12 Intraductal carcinoma in situ of left breast (principal); Z78.0 Asymptomatic menopausal state; Z85.3 Personal history of malignant neoplasm of breast; Z80.3 Family history of malignant neoplasm of breast
CPT/HCPCS: 77066; G0279; 77062

== ENCOUNTER 2022-10-02 15:20 | Emergency (ER) | payer OTHER ==
[2022-10-02 15:28] VITALS: TEMP 98.6
[2022-10-02] MEDS ORDERED: ORPHENADRINE 30 MG/ML 2 ML VIAL IVP STA (16:09)
[2022-10-02] MEDS ORDERED: KETOROLAC 15 MG/ML 1 ML VIAL IVP STA (16:09)
--- NOTE | 2022-10-02 16:17 | XR ---
EXAMINATION TYPE: XR chest 2V DATE OF EXAM: 10/02/2022 COMPARISON: 06/15/2021 HISTORY: Cough TECHNIQUE: FINDINGS: Heart is normal. Lungs are clear. Diaphragm is normal. Bony thorax is intact. No evidence o f pleural effusion. IMPRESSION: No active cardiopulmonary disease. There is clearing of the peripheral pulmonary infiltra domo compared to old exam.
[2022-10-02 16:38] LABS: Basophils % (A) 1 %; Eosinophils # (A) 0.1 k/uL (0-0.7); Eosinophils % (A) 1 %; HCT 38.7 % (34.0-46.0); HGB 13.2 gm/dL (11.4-16.0); Lymphocytes # (A) 1.8 k/uL (1.0-4.8); Lymphocytes % (A) 27 %; MCH 30.9 pg (25.0-35.0); MCHC 34.2 g/dL (31.0-37.0); MCV 90.5 fL (80.0-100.0); Mean Platelet Volume 8.2; Monocytes # (A) 0.5 k/uL (0-1.0); Monocytes % (A) 7 %; Neutrophils # (A) 4.2 k/uL (1.3-7.7); Neutrophils % (A) 62 %; Platelet Count 323 k/uL (150-450); RBC 4.28 m/uL (3.80-5.40); RDW 12.2 % (11.5-15.5); WBC 6.7 k/uL (3.8-10.6)
[2022-10-02 16:49] VITALS: PULSE 62; RESP 18
[2022-10-02 16:49] LABS: ALT 18 U/L (4-34); AST 16 U/L (14-36); African American GFR (CKD) >90 (>60 ml/min/1.73 sqM); Albumin 4.3 g/dL (3.5-5.0); Alkaline Phosphatase 81 U/L (38-126); Anion Gap 9 mmol/L; Blood Urea Nitrogen 14 mg/dL (7-17); Calcium 8.9 mg/dL (8.4-10.2); Carbon Dioxide 25 mmol/L (22-30); Chloride 108 mmol/L (98-107); Glucose 102 mg/dL (74-99); Non-African American GFR(CKD) >90 (>60 ml/min/1.73 sqM); Sodium 142 mmol/L (137-145); Total Bilirubin 0.4 mg/dL (0.2-1.3)
[2022-10-02] MEDS ORDERED: ACET/COD 300 MG/30 MG STARTER PACK 6 TAB BTL PO STA (17:32)
[2022-10-02] MEDS ORDERED: CYCLOBENZAPRINE 10MG STARTER 3 TAB BTL PO STA (17:34)
--- NOTE | 2022-10-02 17:35 | ED ---
URI HPI - General Chief Complaint: Upper Respiratory Infection Stated Complaint: Cough/Back Pain Time Seen by Provider: 10/02/22 15:37 Source: patient, RN notes reviewed Mode of arrival: wheelchair - History of Present Illness Initial Comments: 63-year-old female presents emergency Department chief complaint of cough congestion 2 weeks. Patient states that she was exposed to RSV she has not been feeling well. Patient states that she's been coughing so hard that she started having spasms in her back. Patient denies any shortness of breath denies any exertional symptoms. She states pain is worse when she takes a deep inspiration or twisting or bends. She has no anterior chest pain she states she had no recent fever congestion, sore throat have been improving. Patient has a long history of back issues. - Related Data Home Medications Medication Instructions Recorded Confirmed Cholecalciferol [Vitamin D3 (25 1,000 unit PO DAILY 08/21/15 06/15/21 Mcg = 1000 Iu)] Levothyroxine Sodium [Synthroid] 100 mcg PO DAILY 01/05/21 06/15/21 Albuterol Sulfate [Proair Hfa] 1 - 2 puff INHALATION RT-Q8H PRN 06/15/21 06/15/21 Magnesium Oxide [Mag-Ox] 250 mg PO DAILY 06/15/21 06/15/21 Zinc 50 mg PO DAILY 06/15/21 06/15/21 traZODone HCL [Desyrel] 50 mg PO HS 06/15/21 06/15/21 Previous Rx's Medication Instructions Recorded Benzonatate [Tessalon Perles] 100 mg PO TID #21 cap 06/15/21 Naproxen [Naprosyn] 250 mg PO BID #30 tab 06/18/21 Cyclobenzaprine [Flexeril] 10 mg PO TID PRN #15 tab 10/02/22 Ketorolac [Toradol] 10 mg PO Q8HR #15 tab 10/02/22 Allergies Allergy/AdvReac Type Severity Reaction Status Date / Time No Known Allergies Allergy Verified 10/02/22 15:28 Review of Systems ROS Statement: Those systems with pertinent positive or pertinent negative responses have been documented in the HPI. ROS Other: All systems not noted in ROS Statement are negative. Past Medical History Past Medical History: Asthma, Eye Disorder, Fibromyalgia, GERD/Reflux, Osteoarthritis (OA), Rheumatoid Arthritis (RA), Thyroid Disorder Additional Past Medical History / Comment(s): MUSCLE IMBALANCE LT EYE. Hiatal Hernia. hx Endometriosis, Anemia. Lower back pain, "precancer left breast", "back muscles lock up" History of Any Multi-Drug Resistant Organisms: None Reported Past Surgical History: Appendectomy, Breast Surgery, Cholecystectomy, Tubal Ligation Additional Past Surgical History / Comment(s): left breast biopsy Past Anesthesia/Blood Transfusion Reactions: Family History of Problems w/ Anesthesia Additional Past Anesthesia/Blood Transfusion Reaction / Comment(s): Mom has ponv & sob with anesthesia Past Psychological History: Anxiety Smoking Status: Former smoker Past Alcohol Use History: None Reported Past Drug Use History: Marijuana - Past Family History Mother Family Medical History: Cancer Sister(s) Family Medical History: Cancer Father Family Medical History: No Reported History General Exam General appearance: alert, in no apparent distress Head exam: Present: atraumatic, normocephalic, normal inspection Eye exam: Present: normal appearance, PERRL, EOMI. Absent: scleral icterus, conjunctival injection, periorbital swelling ENT exam: Present: normal exam, mucous membranes moist Neck exam: Present: normal inspection, full ROM. Absent: tenderness, meningismus, lymphadenopathy Respiratory exam: Present: normal lung sounds bilaterally, chest wall tenderness. Absent: respiratory distress, wheezes, rales, rhonchi, stridor Cardiovascular Exam: Present: regular rate, normal rhythm, normal heart sounds. Absent: systolic murmur, diastolic murmur, rubs, gallop, clicks GI/Abdominal exam: Present: soft, normal bowel sounds. Absent: distended, tenderness, guarding, rebound, rigid Back exam: Present: tenderness, muscle spasm, paraspinal tenderness. Absent: full ROM Neurological exam: Present: alert Course Vital Signs 10/02/22 10/02/22 10/02/22 15:26 16:07 16:47 Temperature 98.6 F Pulse Rate 73 62 Respiratory 16 22 18 Rate Blood Pressure 119/76 129/83 O2 Sat by Pulse 99 99 Oximetry Medical Decision Making - Medical Decision Making 66 over present for URI symptoms. Patient coworker with no acute findings negative d-dimer, chest x-ray and labs otherwise unremarkable. Patient has reproducible paraspinal tenderness related to muscle spasm she is improving Norflex. Patient will be discharged in stable condition return parameters were discussed. - Lab Data Result diagrams: 10/02/22 16:26 10/02/22 16:26 Lab Results 10/02/22 10/02/22 10/02/22 Range/Units 16:07 16:26 16:26 WBC 6.7 (3.8-10.6) k/uL RBC 4.28 (3.80-5.40) m/uL Hgb 13.2 (11.4-16.0) gm/dL Hct 38.7 (34.0-46.0) % MCV 90.5 (80.0-100.0) fL MCH 30.9 (25.0-35.0) pg MCHC 34.2 (31.0-37.0) g/dL RDW 12.2 (11.5-15.5) % Plt Count 323 (150-450) k/uL MPV 8.2 Neutrophils % 62 % Lymphocytes % 27 % Monocytes % 7 % Eosinophils % 1 % Basophils % 1 % Neutrophils # 4.2 (1.3-7.7) k/uL Lymphocytes # 1.8 (1.0-4.8) k/uL Monocytes # 0.5 (0-1.0) k/uL Eosinophils # 0.1 (0-0.7) k/uL Basophils # 0.0 (0-0.2) k/uL D-Dimer 0.48 (<0.60) mg/L FEU Sodium (137-145) mmol/L Potassium (3.5-5.1) mmol/L Chloride (98-107) mmol/L Carbon Dioxide (22-30) mmol/L Anion Gap mmol/L BUN (7-17) mg/dL Creatinine (0.52-1.04) mg/dL Est GFR (CKD-EPI)AfAm (>60 ml/min/1.73 sqM) Est GFR (CKD-EPI)NonAf (>60 ml/min/1.73 sqM) Glucose (74-99) mg/dL Calcium (8.4-10.2) mg/dL Total Bilirubin (0.2-1.3) mg/dL AST (14-36) U/L ALT (4-34) U/L Alkaline Phosphatase (38-126) U/L Troponin I (0.000-0.034) ng/mL Total Protein (6.3-8.2) g/dL Albumin (3.5-5.0) g/dL Influenza Type A (PCR) Not Detected (Not Detectd) Influenza Type B (PCR) Not Detected (Not Detectd) RSV (PCR) Not Detected (Not Detectd) SARS-CoV-2 (PCR) Not Detected (Not Detectd) 10/02/22 10/02/22 Range/Units 16:26 16:26 WBC (3.8-10.6) k/uL RBC (3.80-5.40) m/uL Hgb (11.4-16.0) gm/dL Hct (34.0-46.0) % MCV (80.0-100.0) fL MCH (25.0-35.0) pg MCHC (31.0-37.0) g/dL RDW (11.5-15.5) % Plt Count (150-450) k/uL MPV Neutrophils % % Lymphocytes % % Monocytes % % Eosinophils % % Basophils % % Neutrophils # (1.3-7.7) k/uL Lymphocytes # (1.0-4.8) k/uL Monocytes # (0-1.0) k/uL Eosinophils # (0-0.7) k/uL Basophils # (0-0.2) k/uL D-Dimer (<0.60) mg/L FEU Sodium 142 (137-145) mmol/L Potassium 4.0 (3.5-5.1) mmol/L Chloride 108 H (98-107) mmol/L Carbon Dioxide 25 (22-30) mmol/L Anion Gap 9 mmol/L BUN 14 (7-17) mg/dL Creatinine 0.69 (0.52-1.04) mg/dL Est GFR (CKD-EPI)AfAm >90 (>60 ml/min/1.73 sqM) Est GFR (CKD-EPI)NonAf >90 (>60 ml/min/1.73 sqM) Glucose 102 H (74-99) mg/dL Calcium 8.9 (8.4-10.2) mg/dL Total Bilirubin 0.4 (0.2-1.3) mg/dL AST 16 (14-36) U/L ALT 18 (4-34) U/L Alkaline Phosphatase 81 (38-126) U/L Troponin I <0.012 (0.000-0.034) ng/mL Total Protein 7.0 (6.3-8.2) g/dL Albumin 4.3 (3.5-5.0) g/dL Influenza Type A (PCR) (Not Detectd) Influenza Type B (PCR) (Not Detectd) RSV (PCR) (Not Detectd) SARS-CoV-2 (PCR) (Not Detectd) - EKG Data -: EKG Interpreted by Me EKG Comments: EKG performed at 16:42 sinus rhythm rate of 68 [place] 147 QRS 86 QT/QTC 387/404 Disposition Clinical Impression: URI (upper respiratory infection), Back muscle spasm Disposition: HOME SELF-CARE Condition: Stable Instructions (If sedation given, give patient instructions): Muscle Spasm (ED) Additional Instructions: Please return to the Emergency Department if symptoms worsen or any other concerns. Prescriptions: Cyclobenzaprine [Flexeril] 10 mg PO TID PRN #15 tab PRN Reason: Muscle Spasm Ketorolac [Toradol] 10 mg PO Q8HR #15 tab Is patient prescribed a controlled substance at d/c from ED?: No Referrals: Kristian Worthington DO [Primary Care Provider] - 1-2 days Time of Disposition: 17:14
[2022-10-02 17:51] VITALS: BP 124/84
== END 2022-10-02 17:52 | disposition home or self-care (01) ==
LOC: EC 15:20
DX: J06.9 Acute upper respiratory infection, unspecified (principal); M62.830 Muscle spasm of back; J45.909 Unspecified asthma, uncomplicated; K21.9 Gastro-esophageal reflux disease without esophagitis; M19.90 Unspecified osteoarthritis, unspecified site; M06.9 Rheumatoid arthritis, unspecified; E07.9 Disorder of thyroid, unspecified; F41.9 Anxiety disorder, unspecified; Z87.891 Personal history of nicotine dependence; F12.90 Cannabis use, unspecified, uncomplicated; Z79.890 Hormone replacement therapy; Z79.899 Other long term (current) drug therapy; Z20.822 Contact with and (suspected) exposure to COVID-19
CPT/HCPCS: 36415; 85379; 80053; 84484; 85025; 87636; 71046; 99284; 96374; 96375; J2360; J1885

== ENCOUNTER → 2022-11-10 | Outpatient (CLI) | payer OTHER ==
--- NOTE | 2022-11-10 10:04 | MM ---
Reason for Exam: Hx of breast cancer, conservation therapy. Last mammogram was performed 1 year(s) and 1 month(s) ago. Patient History: Menarche at age 17. First Full-Term at age 20. Postmenopausal. Patient has history of breast feeding. Breast cancer, left, age 65. 11/13/2020, Stereotactic Core Biopsy on the Left side. 01/06/2021, Lumpectomy on the Left side. 01/06/2021, Malignant Core Biopsy on the left side. Maternal grandmother had breast cancer, age 49. Sister had breast cancer, age 42. Mother had breast cancer, age 34. Sister had ovarian cancer under age 50. Prior Study Comparison: 10/01/2020 Bilateral Screening Mammogram, [facility]. 11/06/2020 Left Screening Mammogram, [facility]. 02/05/2021 Left Diagnostic Mammogram, [facility]. 11/09/2021 Bilateral Diagnostic Mammogram, [facility]. Tissue Density: The breast tissue is heterogeneously dense. This may lower the sensitivity of mammography. Findings: Analyzed By CAD. Postoperative changes of left-sided lumpectomy. No evidence for recurrent or residual mass. No suspicious calcifications are seen within either breast. Overall Assessment: Benign, BI-RAD 2 Management: Diagnostic Mammogram of both breasts in 1 year. A clinical breast exam by your physician is recommended on an annual basis and results should be correlated with mammographic findings. This exam should not preclude additional follow-up of suspicious palpable abnormalities. Results were given to the patient verbally at the time of exam. Electronically signed and approved by: Fede Collier M.D. Radiologis
== END | disposition home or self-care (01) ==
LOC: RADMAMWWP 09:26
PROVIDERS: ATTEND Radiology Radiation Oncology
DX: D05.12 Intraductal carcinoma in situ of left breast (principal); Z78.0 Asymptomatic menopausal state; Z80.3 Family history of malignant neoplasm of breast; Z85.3 Personal history of malignant neoplasm of breast; Z98.890 Other specified postprocedural states
CPT/HCPCS: 77066

== ENCOUNTER → 2023-12-27 | Outpatient (CLI) | payer MEDICARE, OTHER ==
--- NOTE | 2023-12-27 09:49 | MM ---
Reason for Exam: Hx of breast cancer, conservation therapy. Last mammogram was performed 1 year(s) and 1 month(s) ago. Patient History: Menarche at age 17. First Full-Term at age 20. Postmenopausal. Patient has history of breast feeding. Breast cancer, left, age 65. 11/13/2020, Stereotactic Core Biopsy on the Left side. 01/06/2021, Lumpectomy on the Left side. 01/06/2021, Malignant Core Biopsy on the left side. Maternal grandmother had breast cancer, age 49. Sister had breast cancer, age 42. Mother had breast cancer, age 34. Sister had ovarian cancer under age 50. Tissue Density: The breasts are heterogeneously dense, which may obscure small masses. Findings: Analyzed By CAD. Posttreatment changes left breast. No new suspicious masses, calcifications or distortions. Overall Assessment: Benign, BI-RAD 2 Management: Diagnostic Mammogram of both breasts in 1 year. Results were given to the patient verbally at the time of exam. Patient should continue monthly self-breast exams. A clinical breast exam by your physician is recommended on an annual basis. This exam should not preclude additional follow-up of suspicious palpable abnormalities. Note on Mone scores and lifetime risk: 1. A Mone score greater than 3% is considered moderate risk. If this is the case, consider specialist referral to assess eligibility for a risk reducing agent. 2. If overall lifetime risk for the development of breast cancer is 20% or higher, the patient may qualify for future screening with alternating mammogram and breast MRI. Electronically signed and approved by: Ronal Katz DO
== END | disposition home or self-care (01) ==
LOC: RADMAMWWP 09:19
PROVIDERS: ATTEND Radiology Radiation Oncology
DX: Z08 Encounter for follow-up examination after completed treatment for malignant neoplasm (principal); R92.333 Mammographic heterogeneous density, bilateral breasts; Z86.000 Personal history of in-situ neoplasm of breast; Z87.891 Personal history of nicotine dependence; Z80.3 Family history of malignant neoplasm of breast; Z85.3 Personal history of malignant neoplasm of breast; Z78.0 Asymptomatic menopausal state
CPT/HCPCS: 77066; G0279; 77062

== ENCOUNTER → 2024-02-20 | Outpatient (CLI) | payer MEDICARE, OTHER ==
--- NOTE | 2024-02-20 18:30 | BD ---
EXAMINATION TYPE: Axial Bone Density DATE OF EXAM: 02/20/2024 CLINICAL HISTORY: 68 years old Female. ICD-10 CODE: M85.88DISRD OF BONE DENSITY AND STRUCTURE, OTHER S Height: 64 Weight: 124.1 FRAX RISK QUESTIONS: Alcohol (3 or more units per day): no Family History (Parent hip fracture): no Glucocorticoids (More than 3mos): no (Ex: prednisone, prednisolone, methylprednisolone, dexamethasone, and hydrocortisone). History of Fracture in Adulthood: yes Secondary Osteoporosis: 1. Type 1 Diabetes: no 2. Hyperthyroidism: no 3. Menopause before 45: no 4. Malnutrition: no 5. Chronic liver disease: no Rheumatoid Arthritis: no Current Tobacco Use: no RISK FACTORS HISTORY OF: Hip Fracture (Right/Left): no Spine Fracture: no History of Wrist Fracture: no Surgery to Spine/Hip(right/left)/Wrist (right/left): no MEDICATIONS: Thyroid Medications: Synthroid How Long: past one year Osteoporosis Medications: no EXAM MEASUREMENTS: Bone mineral densitometry was performed using the [employer] System. Bone mineral density as measured about the Lumbar spine is: ----- L1-L4(G/cm2): 0.874 T Score Values are as follows: ----- L1: -2.7 ----- L2: -2.7 ----- L3: -2.2 ----- L4: -2.9 ----- L1-L4: -2.6 Z Score Values are as follows: ----- L1: -0.8 ----- L2: -0.8 ----- L3: -0.3 ----- L4: -1.0 ----- L1-L4: -0.7 Baseline Study Bone mineral density about the R hip (g/cm2): 0.811 Bone mineral density about the L hip (g/cm2): 0.755 T Score values are as follows: -----R Neck: -1.7 -----L Neck: -2.1 -----R Total: -1.6 -----L Total: -2.0 Z Score values are as follows: -----R Neck: 0.0 -----L Neck: -0.4 -----R Total: -0.1 -----L Total: -0.5 Baseline Study FRAX%s: The graph provided illustrates a 10.5% chance for a major osteoporotic fx and a 1.9% chance f or the hips probability for fx in 10 years time. IMPRESSION: Osteoporosis (T Score less than -2.5). There is increased fracture risk and therapy is usually indicated based on age. Re-Screen 1-2 years. NOTE: T-SCORE=SD OF THE YOUNG ADULT MEAN.
== END | disposition home or self-care (01) ==
LOC: RADBDWWP 14:57
PROVIDERS: ATTEND Internal Medicine Hematology & Oncology
DX: M81.0 Age-related osteoporosis without current pathological fracture (principal); M19.90 Unspecified osteoarthritis, unspecified site; M85.89 Other specified disorders of bone density and structure, multiple sites; J45.909 Unspecified asthma, uncomplicated; Z80.3 Family history of malignant neoplasm of breast
CPT/HCPCS: 77080

== ENCOUNTER → 2024-02-21 | Outpatient (CLI) | payer MEDICARE, OTHER ==
--- NOTE | 2024-02-21 15:50 | NM ---
EXAMINATION TYPE: NM bone scan whole body DATE OF EXAM: 02/21/2024 2:52 PM CLINICAL INDICATION:Female, 68 years old with history of OTH DISRD OF BONE DENSITY AND STRUCTURE, OTH ER SITE; COMPARISON: TECHNIQUE: Intravenous administration 22.5 mCi Tc 99m MDP followed by multiple scintigraphic images o f the appendicular and axial skeleton. Images acquired 3 hours post injection. FINDINGS: No abnormal uptake is identified within the appendicular or axial skeleton to suggest metastatic dise ase. There is increased uptake within the bilateral shoulder, sternoclavicular, and sacroiliac joints con sistent with degenerative changes. No other photopenic areas or areas of increased activity are ident ified. Physiologic radiotracer activity is demonstrated in the kidneys and bladder. IMPRESSION: Nothing to suggest metastatic disease.
== END | disposition home or self-care (01) ==
LOC: RADNMMAIN 10:37
PROVIDERS: ATTEND Internal Medicine Hematology & Oncology
DX: M85.88 Other specified disorders of bone density and structure, other site (principal); J45.909 Unspecified asthma, uncomplicated; M12.9 Arthropathy, unspecified; Z80.3 Family history of malignant neoplasm of breast
CPT/HCPCS: 78306; A9503

== ENCOUNTER → 2024-07-18 | Outpatient (CLI) | payer MEDICARE, OTHER ==
--- NOTE | 2024-07-18 11:35 | CT ---
EXAMINATION TYPE: CT abdomen pelvis wo con DATE OF EXAM: 07/18/2024 HISTORY: left side abdominal pain x1 week. CT DLP: 277.50 mGycm. Automated Exposure Control for Dose Reduction was Utilized. TECHNIQUE: CT scan of the abdomen and pelvis is performed without oral or IV contrast. COMPARISON: 07/21/2014 FINDINGS: Within the limitations of a non-contrast study, the following observations are made. LUNG BASES: 3 mm subpleural posterior pulmonary nodules left lower lobe are likely benign. LIVER/GB: There are slightly reduced in attenuation relative to the spleen which could be associated with hepatocellular disease or underlying hepatic steatosis. Multiple subcentimeter hypodensities wit hin the liver are too small to characterize but most typical of benign cysts. 3 mild isolated left lo be central biliary dilation is similar to prior exam limited by lack of contrast.. Gallbladder is not seen. PANCREAS: No significant abnormality is seen. SPLEEN: No significant abnormality is seen. ADRENALS: No significant abnormality is seen. KIDNEYS: No hydronephrosis. There is a punctate 1 mm lower pole left renal calculus. Small bilateral hypodensities subcentimeter in size are too small to characterize and inadequately evaluated by nonco ntrast CT scan. BOWEL: No evidence of obstruction. Post gastric surgery suggested. Correlate with surgical history. V ague attenuation seen in the left lower pelvis. Possibility related to mild diverticulitis. GENITAL ORGANS: No gross abnormality seen. LYMPH NODES: No greater than 1cm abdominal or pelvic lymph nodes are appreciated. OSSEOUS STRUCTURES: Multilevel degenerative disc disease and osteopenia. Grade 1 anterolisthesis L3-4 and L4-L5. Mild bilateral facet arthropathy. Sclerotic scattered osseous foci typical benign etiolog y. OTHER: Aorta of normal caliber with mild atherosclerotic change.. Report called to referring clinician 11:31 PM 07/28/2024. IMPRESSION: 1. Vague attenuation left lower quadrant reference image 62 could be related to mild diverticulitis. Given the limitation of noncontrast exam would recommend short-term follow-up CT scan with IV and ora l contrast for further evaluation and to exclude other etiologies including soft tissue nodule or robin nopathy.. 2. Punctate 1 mm lower pole left renal cortical calcification. No hydronephrosis bilaterally. [facility], , 07/18/2024 11:33 AM
== END | disposition home or self-care (01) ==
LOC: RADCTMAIN 09:15
PROVIDERS: ATTEND Family Medicine
DX: N28.89 Other specified disorders of kidney and ureter (principal); R59.9 Enlarged lymph nodes, unspecified; R10.2 Pelvic and perineal pain; I70.0 Atherosclerosis of aorta; M85.80 Other specified disorders of bone density and structure, unspecified site
CPT/HCPCS: 74176

== ENCOUNTER 2024-08-12 16:09 | Emergency (ER) | payer MEDICARE, OTHER ==
--- NOTE | 2024-08-12 17:01 | ED ---
Abdominal Pain HPI - General Chief Complaint: Abdominal Pain Stated Complaint: Abdominal pain Time Seen by Provider: 08/12/24 16:21 Source: patient, RN notes reviewed, old records reviewed Mode of arrival: ambulatory Limitations: no limitations - History of Present Illness Initial Comments: This is a 68-year-old female to the ER for evaluation of abdominal pain left lower quadrant abdominal pain left flank pain history of kidney stones history of diverticulitis and similar symptoms for the past month with weight loss. Patient concerning and very concerned about her weight loss patient denies any significant change in dietary habits. No fevers does have history of gallbladder surgery MD Complaint: abdominal pain, flank pain Location: LLQ, suprapubic, L flank Radiation: L flank Migration to: LLQ, suprapubic Severity scale (1-10): 6 Quality: stabbing Consistency: constant Improves With: nothing Worsens With: nothing Associated Symptoms: nausea Treatments Prior to Arrival: other (0) - Related Data Home Medications Medication Instructions Recorded Confirmed Cholecalciferol [Vitamin D3 (25 1,000 unit PO DAILY 08/21/15 06/15/21 Mcg = 1000 Iu)] Levothyroxine Sodium [Synthroid] 100 mcg PO DAILY 01/05/21 06/15/21 Albuterol Sulfate [Proair Hfa] 1 - 2 puff INHALATION RT-Q8H PRN 06/15/21 06/15/21 Magnesium Oxide [Mag-Ox] 250 mg PO DAILY 06/15/21 06/15/21 Zinc 50 mg PO DAILY 06/15/21 06/15/21 traZODone HCL [Desyrel] 50 mg PO HS 06/15/21 06/15/21 Previous Rx's Medication Instructions Recorded Benzonatate [Tessalon Perles] 100 mg PO TID #21 cap 06/15/21 Naproxen [Naprosyn] 250 mg PO BID #30 tab 06/18/21 Cyclobenzaprine [Flexeril] 10 mg PO TID PRN #15 tab 10/02/22 Ketorolac [Toradol] 10 mg PO Q8HR #15 tab 10/02/22 Allergies Allergy/AdvReac Type Severity Reaction Status Date / Time No Known Allergies Allergy Verified 08/12/24 16:15 Review of Systems ROS Statement: Those systems with pertinent positive or pertinent negative responses have been documented in the HPI. ROS Other: All systems not noted in ROS Statement are negative. Past Medical History Past Medical History: Asthma, Eye Disorder, Fibromyalgia, GERD/Reflux, Os teoarthritis (OA), Rheumatoid Arthritis (RA), Thyroid Disorder Additional Past Medical History / Comment(s): MUSCLE IMBALANCE LT EYE. Hiatal Hernia. hx Endometriosis, Anemia. Lower back pain, "precancer left breast", "back muscles lock up" History of Any Multi-Drug Resistant Organisms: None Reported Past Surgical History: Appendectomy, Breast Surgery, Cholecystectomy, Tubal Ligation Additional Past Surgical History / Comment(s): left breast biopsy Past Anesthesia/Blood Transfusion Reactions: Family History of Problems w/ Anesthesia Additional Past Anesthesia/Blood Transfusion Reaction / Comment(s): Mom has ponv & sob with anesthesia Past Psychological History: Anxiety Smoking Status: Former smoker Past Alcohol Use History: None Reported Past Drug Use History: Marijuana - Past Family History Mother Family Medical History: Cancer Sister(s) Family Medical History: Cancer Father Family Medical History: No Reported History General Exam Limitations: no limitations General appearance: alert, in no apparent distress Head exam: Present: atraumatic, normocephalic, normal inspection Eye exam: Present: normal appearance, PERRL, EOMI. Absent: scleral icterus, conjunctival injection, periorbital swelling ENT exam: Present: normal exam, mucous membranes moist Neck exam: Present: normal inspection. Absent: tenderness, meningismus, lymphadenopathy Respiratory exam: Present: normal lung sounds bilaterally. Absent: respiratory distress, wheezes, rales, rhonchi, stridor Cardiovascular Exam: Present: regular rate, normal rhythm, normal heart sounds. Absent: systolic murmur, diastolic murmur, rubs, gallop, clicks GI/Abdominal exam: Present: soft, normal bowel sounds. Absent: distended, tenderness, guarding, rebound, rigid Extremities exam: Present: normal inspection, full ROM, normal capillary refill. Absent: tenderness, pedal edema, joint swelling, calf tenderness Back exam: Present: normal inspection Neurological exam: Present: alert, oriented X3, CN II-XII intact Psychiatric exam: Present: normal affect, normal mood Skin exam: Present: warm, dry, intact, normal color. Absent: rash Course Vital Signs 08/12/24 08/12/24 08/12/24 16:11 16:26 18:00 Pulse Rate 87 80 69 Respiratory 16 16 16 Rate Blood Pressure 122/83 118/63 127/90 O2 Sat by Pulse 98 100 98 Oximetry - Reevaluation(s) Reevaluation #1: 08/12/24 17:00 Medical records reviewed Reevaluation #2: 08/12/24 21:13 Patient pain is improved Reevaluation #3: 08/12/24 21:13 Patient informed of results questions answered Reevaluation #4: Was pt. sent in by a medical professional or institution ([facility], [facility] [employer], urgent care, hospital, or group home...) When possible be specific @ -no Did you speak to anyone other than the patient for history (EMS, parent, family, police, friend...)? What history was obtained from this source @ -no Did you review nursing and triage notes (agree or disagree)? Why? @ -agree Are old charts reviewed (outside hosp., previous admission, EMS record, old EKG, old radiological studies, urgent care reports/EKG's, group home records)? Report findings @ -yes Differential Diagnosis (chest pain, altered mental status, abdominal pain women, abdominal pain men, vaginal bleeding, weakness, fever, dyspnea, syncope, headache, dizziness, GI bleed, back pain, seizure, CVA, palpatations, mental health, musculoskeletal)? @ -prior EKG interpreted by me (3pts min.). @ -yes X-rays interpreted by me (1pt min.). @ -yes negative for acute disease CT interpreted by me (1pt min.). @ -no U/S interpreted by me (1pt. min.). @ -no What testing was considered but not performed or refused? (CT, X-rays, U/S, labs)? Why? @ -none What meds were considered but not given or refused? Why? @ -none Did you discuss the management of the patient with other professionals (pr ofessionals i.e. [facility], [facility], lab, RT, psych nurse, social media sr strategy manager, rough rice grader, teacher, seaman officer, case assistant)? Give summary @ -no Was smoking cessation discussed for >3mins.? @ -no Was critical care preformed (if so, how long)? @ -no Were there social determinants of health that impacted care today? How? (Homelessness, low income, unemployed, alcoholism, drug addiction, transportation, low edu. Level, literacy, decrease access to med. care, penitentiary, rehab)? @ -none Was there de-escalation of care discussed even if they declined (Discuss DNR or withdrawal of care, Hospice)? DNR status @ -no What co-morbidities impacted this encounter? (DM, HTN, Smoking, COPD, CAD, Cancer, CVA, ARF, Chemo, Hep., AIDS, mental health diagnosis, sleep apnea, morbid obesity)? @ -none Was patient admitted / discharged? Hospital course, mention meds given and route, prescriptions, significant lab abnormalities, going to OR and other pertinent info. @ - Undiagnosed new problem with uncertain prognosis? @ -no Drug Therapy requiring intensive monitoring for toxicity (Heparin, Nitro, Insulin, Cardizem)? @ -no Were any procedures done? @ -no Diagnosis/symptom? @ - Acute, or Chronic, or Acute on Chronic? @ -Acute Uncomplicated (without systemic symptoms) or Complicated (systemic symptoms)? @ -Complicated Side effects of treatment? @ -no Exacerbation, Progression, or Severe Exacerbation? @ -exacerbation Poses a threat to life or bodily function? How? (Chest pain, USA, CT, pneumonia, PE, COPD, DKA, ARF, appy, cholecystitis, CVA, Diverticulitis, Homicidal, Suicidal, threat to staff... and all critical care pts) @ -yes Reevaluation #5: Differential Abdominal Pain Women: Appendicitis, Cholecystitis, diverticulosis, ischemic bowel, pancreatitis, hepatitis, UTI, gastroenteritis, AAA, incarcerated hernia, bowel obstruction, constipation, inflammatory bowel, hepatitis, peptic ulcer disease, splenic infarction, perforated viscus, vulvitis, ovarian torsion, PID, kidney stone, placenta abruption, this is not meant to be an all-inclusive list Medical Decision Making - Medical Decision Making 68 female to ER with unknown cause of abdominal pain abdominal pain NOS. CT scan negative lab testing negative patient can be discharged home - Lab Data Result diagrams: 08/12/24 18:05 08/12/24 17:59 Lab Results 08/12/24 08/12/24 08/12/24 Range/Units 17:59 17:59 17:59 WBC (3.8-10.6) k/uL RBC (3.80-5.40) m/uL Hgb (11.4-16.0) gm/dL Hct (34.0-46.0) % MCV (80.0-100.0) fL MCH (25.0-35.0) pg MCHC (31.0-37.0) g/dL RDW (11.5-15.5) % Plt Count (150-450) k/uL MPV Neutrophils % % Lymphocytes % % Monocytes % % Eosinophils % % Basophils % % Neutrophils # (1.3-7.7) k/uL Lymphocytes # (1.0-4.8) k/uL Monocytes # (0-1.0) k/uL Eosinophils # (0-0.7) k/uL Basophils # (0-0.2) k/uL Sodium 138 (137-145) mmol/L Potassium 4.0 (3.5-5.1) mmol/L Chloride 104 (98-107) mmol/L Carbon Dioxide 27 (22-30) mmol/L Anion Gap 7 mmol/L BUN 9 (7-17) mg/dL Creatinine 0.63 (0.52-1.04) mg/dL Est GFR (CKD-EPI)AfAm >90 (>60 ml/min/1.73 sqM) Est GFR (CKD-EPI)NonAf >90 (>60 ml/min/1.73 sqM) Glucose 80 (74-99) mg/dL Plasma Lactic Acid Kenji 0.8 (0.7-2.0) mmol/L Calcium 10.2 (8.4-10.2) mg/dL Phosphorus 4.3 (2.5-4.5) mg/dL Magnesium 2.1 (1.6-2.3) mg/dL Total Bilirubin 1.0 (0.2-1.3) mg/dL AST 18 (14-36) U/L ALT 13 (4-34) U/L Alkaline Phosphatase 75 (38-126) U/L Total Protein 7.6 (6.3-8.2) g/dL Albumin 5.0 (3.5-5.0) g/dL Amylase 59 (30-110) U/L Lipase 147 (23-300) U/L Urine Color Colorless Urine Appearance Clear (Clear) Urine pH 6.5 (5.0-8.0) Ur Specific [place] 1.003 (1.001-1.035) Urine Protein Negative (Negative) Urine Glucose (UA) Negative (Negative) Urine Ketones 1+ H (Negative) Urine Blood Negative (Negative) Urine Nitrite Negative (Negative) Urine Bilirubin Negative (Negative) Urine Urobilinogen <2.0 (<2.0) mg/dL Ur Leukocyte Esterase Trace H (Negative) Urine RBC <1 (0-5) /hpf Urine WBC 1 (0-5) /hpf Ur Squamous Epith Cells <1 (0-4) /hpf 08/12/24 Range/Units 18:05 WBC 8.3 (3.8-10.6) k/uL RBC 4.58 (3.80-5.40) m/uL Hgb 14.1 (11.4-16.0) gm/dL Hct 42.8 (34.0-46.0) % MCV 93.5 (80.0-100.0) fL MCH 30.8 (25.0-35.0) pg MCHC 32.9 (31.0-37.0) g/dL RDW 12.6 (11.5-15.5) % Plt Count 282 (150-450) k/uL MPV 8.8 Neutrophils % 64 % Lymphocytes % 27 % Monocytes % 5 % Eosinophils % 1 % Basophils % 1 % Neutrophils # 5.3 (1.3-7.7) k/uL Lymphocytes # 2.3 (1.0-4.8) k/uL Monocytes # 0.4 (0-1.0) k/uL Eosinophils # 0.1 (0-0.7) k/uL Basophils # 0.1 (0-0.2) k/uL Sodium (137-145) mmol/L Potassium (3.5-5.1) mmol/L Chloride (98-107) mmol/L Carbon Dioxide (22-30) mmol/L Anion Gap mmol/L BUN (7-17) mg/dL Creatinine (0.52-1.04) mg/dL Est GFR (CKD-EPI)AfAm (>60 ml/min/1.73 sqM) Est GFR (CKD-EPI)NonAf (>60 ml/min/1.73 sqM) Glucose (74-99) mg/dL Plasma Lactic Acid Kenji (0.7-2.0) mmol/L Calcium (8.4-10.2) mg/dL Phosphorus (2.5-4.5) mg/dL Magnesium (1.6-2.3) mg/dL Total Bilirubin (0.2-1.3) mg/dL AST (14-36) U/L ALT (4-34) U/L Alkaline Phosphatase (38-126) U/L Total Protein (6.3-8.2) g/dL Albumin (3.5-5.0) g/dL Amylase (30-110) U/L Lipase (23-300) U/L Urine Color Urine Appearance (Clear) Urine pH (5.0-8.0) Ur Specific [place] (1.001-1.035) Urine Protein (Negative) Urine Glucose (UA) (Negative) Urine Ketones (Negative) Urine Blood (Negative) Urine Nitrite (Negative) Urine Bilirubin (Negative) Urine Urobilinogen (<2.0) mg/dL Ur Leukocyte Esterase (Negative) Urine RBC (0-5) /hpf Urine WBC (0-5) /hpf Ur Squamous Epith Cells (0-4) /hpf - Radiology Data Radiology results: report reviewed (CT abdomen pelvis is negative for acute disease), image reviewed Disposition Clinical Impression: Abdominal pain Disposition: HOME SELF-CARE Condition: Good Instructions (If sedation given, give patient instructions): Abdominal Pain (ED) Is patient prescribed a controlled substance at d/c from ED?: No Referrals: Kristian Worthington DO [Primary Care Provider] - 1-2 days Time of Disposition: 21:00
[2024-08-12] MEDS: SODIUM CHLORIDE 0.9% 1,000 ML IV STA (17:53)
[2024-08-12] MEDS: KETOROLAC 15 MG/ML 1 ML VIAL IVP STA (17:54)
[2024-08-12] MEDS: ONDANSETRON 4 MG/2 ML VIAL IVP STA (17:55)
[2024-08-12] MEDS: MORPHINE SULFATE 4 MG/ML SYRINGE IVP STA (17:58)
[2024-08-12 18:11] LABS: Basophils # (A) 0.1 k/uL (0-0.2); Basophils % (A) 1 %; Eosinophils # (A) 0.1 k/uL (0-0.7); Eosinophils % (A) 1 %; HCT 42.8 % (34.0-46.0); HGB 14.1 gm/dL (11.4-16.0); Lymphocytes # (A) 2.3 k/uL (1.0-4.8); Lymphocytes % (A) 27 %; MCH 30.8 pg (25.0-35.0); MCHC 32.9 g/dL (31.0-37.0); MCV 93.5 fL (80.0-100.0); Mean Platelet Volume 8.8; Monocytes # (A) 0.4 k/uL (0-1.0); Monocytes % (A) 5 %; Neutrophils # (A) 5.3 k/uL (1.3-7.7); Neutrophils % (A) 64 %; Platelet Count 282 k/uL (150-450); RBC 4.58 m/uL (3.80-5.40); RDW 12.6 % (11.5-15.5); WBC 8.3 k/uL (3.8-10.6)
[2024-08-12 18:22] LABS: ALT 13 U/L (4-34); AST 18 U/L (14-36); African American GFR (CKD) >90 (>60 ml/min/1.73 sqM); Alkaline Phosphatase 75 U/L (38-126); Amylase 59 U/L (30-110); Anion Gap 7 mmol/L; Blood Urea Nitrogen 9 mg/dL (7-17); Calcium 10.2 mg/dL (8.4-10.2); Carbon Dioxide 27 mmol/L (22-30); Chloride 104 mmol/L (98-107); Glucose 80 mg/dL (74-99); Lipase 147 U/L (23-300); Magnesium 2.1 mg/dL (1.6-2.3); Non-African American GFR(CKD) >90 (>60 ml/min/1.73 sqM); Sodium 138 mmol/L (137-145); Total Protein 7.6 g/dL (6.3-8.2)
[2024-08-12 19:27] LABS: Phosphorus 4.3 mg/dL (2.5-4.5)
[2024-08-12 19:30] LABS: Appearance,Urine Clear (Clear); Bilirubin,Urine Negative (Negative); Blood,Urine Negative (Negative); Color,Urine Colorless; Glucose,Urine (UA) Negative (Negative); Ketones,Urine 1+ (Negative); Leukocyte Esterase,Urine Trace (Negative); Nitrite,Urine Negative (Negative); PH, Urine 6.5 (5.0-8.0); Protein,Urine Negative (Negative); RBC,Urine <1 /hpf (0-5); Specific Gravity,Urine 1.003 (1.001-1.035); Squamous Epithelial Cell,Urine <1 /hpf (0-4); Urobilinogen,Urine <2.0 mg/dL (<2.0); WBC,Urine 1 /hpf (0-5)
--- NOTE | 2024-08-12 20:23 | CT ---
EXAMINATION TYPE: CT abdomen pelvis w con DATE OF EXAM: 08/12/2024 7:39 PM COMPARISON: CT abdomen pelvis most recent from 07/28/2024 CLINICAL INDICATION: Female, 68 years old with history of abdominal pain; diverticulitis TECHNIQUE: Axial CT abdomen pelvis w con;Sagittal and coronal reformats were created on a separate w orkstation. Contrast used:100 mL of Isovue 300 with IV Contrast, (none if empty) Oral contrast used: without Oral Contrast (none if empty) CT DLP: 498.6 mGycm, Automated exposure control for dose reduction was used. FINDINGS: LOWER CHEST: Unremarkable ABDOMEN LIVER: Unremarkable GALLBLADDER AND BILE DUCTS: Gallbladder is surgically absent with mild intrahepatic and extra hepatic biliary dilatation likely physiologic and a postcholecystectomy change. No evidence of choledocholit hiasis. PANCREAS: Unremarkable. SPLEEN: Unremarkable. ADRENAL GLANDS: Unremarkable. KIDNEYS AND URETERS: No evidence of hydronephrosis or renal calculus. The ureters are unremarkable. ) Right renal 13 mm fat-containing lesion. Additional bilateral simple appearing renal lesions. PELVIS BLADDER: No evidence for wall thickening or mass given limitations of exam. REPRODUCTIVE: The uterus is not visualized may be surgically absent. ABDOMEN & PELVIS STOMACH AND BOWEL: No evidence of bowel obstruction. Postsurgical changes to gastroesophageal junctio n. Moderate to large amount of stool throughout the colon. PERITONEUM/RETROPERITONEUM: No evidence of pneumoperitoneum or free fluid. VASCULATURE: No evidence of aortic aneurysm. MUSCULOSKELETAL: No acute osseous abnormalities. Mild disc degeneration changes are present throughou t the thoracolumbar spine. LYMPH NODES: No gross evidence for lymphadenopathy. SOFT TISSUE/ABDOMINAL WALL: Unremarkable IMPRESSION: 1. No evidence for acute abdominal process. 2. 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 3. Moderate to large amount stool throughout the colon. [facility], , 08/12/2024 8:20 PM
[2024-08-12] MEDS: ONDANSETRON 4 MG ODT STARTER PACK 2 TAB BTL PO STA (21:47)
[2024-08-12] MEDS: ACET/COD 300 MG/30 MG STARTER PACK 6 TAB BTL PO STA (21:47)
[2024-08-12] MEDS: IBUPROFEN 600 MG STARTER PACK 4 TAB BTL PO STA (21:47)
[2024-08-12 21:49] VITALS: BP 120/77; PULSE 57; RESP 14; TEMP 97.8
== END 2024-08-12 21:50 | disposition home or self-care (01) ==
LOC: EC 16:09
DX: R10.32 Left lower quadrant pain (principal); Z87.891 Personal history of nicotine dependence
CPT/HCPCS: 36415; 80053; 82150; 83605; 83690; 83735; 84100; 85025; 81001; 74177; 99284; 96374; 96375 ×2; 96361 ×2; J2270; J2405; J1885; S0119; Q9967